=== PATIENT | male | born 1995 | race Two or more races ===

== ENCOUNTER 2023-02-08 14:54 | Emergency (ER) | payer OTHER ==
[~2023-02-08] VITALS: Ht 172.7 cm; Wt 91.7 kg
[2023-02-08] MEDS ORDERED: ETOMIDATE (2MG/ML) 20ML VIAL IV ONE (16:15)
[2023-02-08] MEDS ORDERED: PROPOFOL 100 ML IV ONE (17:12)
[2023-02-08] MEDS ORDERED: KETAMINE HCL 10 ML ONE (17:13)
[2023-02-08] MEDS ORDERED: IBUP800T26 PO (18:12)
[2023-02-08] MEDS ORDERED: PROPOFOL 10 MG/ML 20 ML IV ONE (19:00)
[2023-02-08 21:30] VITALS: BP 158/96
== END 2023-02-08 21:22 | disposition home or self-care (01) ==
LOC: ER 14:54
DX: S43.004A Unspecified dislocation of right shoulder joint, initial encounter (principal); I10 Essential (primary) hypertension; X58.XXXA Exposure to other specified factors, initial encounter; Y93.89 Activity, other specified; Y92.89 Other specified places as the place of occurrence of the external cause; Y99.8 Other external cause status
CPT/HCPCS: 23650; 73020; 99152; 99153; 99285; J2704

== ENCOUNTER 2023-02-19 11:48 | Emergency (ER) | payer OTHER ==
[~2023-02-19] VITALS: Ht 172.7 cm; Wt 89.0 kg
[~2023-02-19 11:48] MED LIST: IBUP800T26 PO
[2023-02-19] MEDS ORDERED: PROPOFOL 10 MG/ML 20 ML IV ONE (17:00)
[2023-02-19] MEDS ORDERED: SODIUM CHLORIDE 0.9% 1,000 ML IV ONE (17:00)
[2023-02-19 20:35] VITALS: BP 154/97
== END 2023-02-19 20:38 | disposition home or self-care (01) ==
LOC: ER 11:48
DX: M24.411 Recurrent dislocation, right shoulder (principal)
CPT/HCPCS: 23650; 73020; 73030; 96360; 99152; 99285; J2704; J7030

== ENCOUNTER 2023-04-17 05:33 | Emergency (ER) | payer OTHER ==
[~2023-04-17] VITALS: Ht 172.7 cm; Wt 100.0 kg
[~2023-04-17 05:33] MED LIST changes: +IBUP-1455 PO; -IBUP800T26 PO
[2023-04-17] MEDS ORDERED: ETOMIDATE (2MG/ML) 20ML VIAL IV ONE (06:45)
[2023-04-17 09:57] VITALS: BP 149/99
== END 2023-04-17 10:27 | disposition home or self-care (01) ==
LOC: ER 05:33
DX: M24.411 Recurrent dislocation, right shoulder (principal); I10 Essential (primary) hypertension; Z79.1 Long term (current) use of non-steroidal anti-inflammatories (NSAID)
CPT/HCPCS: 23650; 73030; 94760; 94762; 99152

== ENCOUNTER 2023-06-14 11:05 | Emergency (ER) | payer OTHER ==
[~2023-06-14] VITALS: Ht 172.7 cm; Wt 86.4 kg
[2023-06-14 11:37] VITALS: RESP 63; TEMP 97.9; O2SAT 98
[2023-06-14] MEDS ORDERED: ETOMIDATE (2MG/ML) 20ML VIAL IV ONE (11:45)
[2023-06-14 14:00] VITALS: BP 144/88; PULSE 58; RESP 13; O2SAT 100
== END 2023-06-14 14:06 | disposition home or self-care (01) ==
LOC: ER 11:05
DX: S43.014A Anterior dislocation of right humerus, initial encounter (principal); I10 Essential (primary) hypertension; K80.20 Calculus of gallbladder without cholecystitis without obstruction; F17.210 Nicotine dependence, cigarettes, uncomplicated; F15.90 Other stimulant use, unspecified, uncomplicated; Z90.89 Acquired absence of other organs; Z79.1 Long term (current) use of non-steroidal anti-inflammatories (NSAID); X58.XXXA Exposure to other specified factors, initial encounter; Y93.01 Activity, walking, marching and hiking; Y92.89 Other specified places as the place of occurrence of the external cause; Y99.8 Other external cause status
CPT/HCPCS: 23650; 73020; 73030; 99152

== ENCOUNTER 2023-06-28 00:06 | Emergency (ER) | payer OTHER ==
[~2023-06-28] VITALS: Ht 172.7 cm; Wt 85.1 kg
[2023-06-28 02:27] VITALS: TEMP 98.4
[2023-06-28] MEDS ORDERED: KETAMINE 50mg/ML 10ml Vial (500mg/10ml) IV ONE (02:30)
[2023-06-28] MEDS ORDERED: PROPOFOL 10 MG/ML 20 ML IV ONE ×2 (02:50→03:15)
[2023-06-28 03:00] VITALS: PULSE 95; RESP 15; O2SAT 96
[2023-06-28] MEDS ORDERED: PROPRANOLOL HCL 1 MG/ML VIAL IV ONE (03:00)
[2023-06-28 05:30] VITALS: BP 15/94; PULSE 95; RESP 15; O2SAT 100
== END 2023-06-28 06:01 | disposition home or self-care (01) ==
LOC: ER 00:06
DX: S43.004A Unspecified dislocation of right shoulder joint, initial encounter (principal); I10 Essential (primary) hypertension; F17.210 Nicotine dependence, cigarettes, uncomplicated; Z90.49 Acquired absence of other specified parts of digestive tract; Z79.1 Long term (current) use of non-steroidal anti-inflammatories (NSAID); X58.XXXA Exposure to other specified factors, initial encounter; Y93.89 Activity, other specified; Y92.89 Other specified places as the place of occurrence of the external cause; Y99.8 Other external cause status
CPT/HCPCS: 23650; 73020; 73030; 99152; 99285; J2704

== ENCOUNTER 2023-08-19 20:42 | Emergency (ER) | payer OTHER ==
[~2023-08-19] VITALS: Ht 172.7 cm; Wt 85.2 kg
[2023-08-19] MEDS ORDERED: ONDANSETRON HCL 4 MG/2 ML VIAL IV ONE (23:30)
[2023-08-19] MEDS ORDERED: fentaNYL CITRATE 100 MCG/2 ML VL IV ONE (23:30)
[2023-08-19] MEDS ORDERED: PROPOFOL 10 MG/ML 20 ML IV ONE (23:30)
[2023-08-19 23:41] VITALS: PULSE 88; RESP 16; O2SAT 96
[2023-08-20] MEDS ORDERED: ALBUTEROL MEDNEB 2.5 mg/3ml NEB ONE (01:58)
[2023-08-20] MEDS ORDERED: ALBUTEROL SULF 2.5 MG/0.5ML(0.5%) NEB SOLN NEB ONE (02:00)
[2023-08-20] MEDS ORDERED: DexAMETHasone SOD PHOS 10MG/1ML VIAL INJ IV ONE (02:00)
[2023-08-20 02:45] VITALS: BP 150/85; PULSE 84; RESP 15; O2SAT 94
== END 2023-08-20 03:00 | disposition home or self-care (01) ==
LOC: ER 20:46
DX: S43.004A Unspecified dislocation of right shoulder joint, initial encounter (principal); X58.XXXA Exposure to other specified factors, initial encounter; Y93.89 Activity, other specified; Y92.89 Other specified places as the place of occurrence of the external cause; Y99.8 Other external cause status
CPT/HCPCS: 23650; 73020; 73030; 94640; 96374; 96375; 99152; 99153; 99285; J1100; J2704; J3010

== ENCOUNTER 2023-11-12 19:38 | Emergency (ER) | payer OTHER ==
[~2023-11-12] VITALS: Ht 172.7 cm; Wt 90.0 kg
[2023-11-13 00:35] VITALS: PULSE 76; RESP 22; O2SAT 97
[2023-11-13 00:55] VITALS: TEMP 98.9
[2023-11-13] MEDS ORDERED: AMOX875T4 PO (00:55)
[2023-11-13] MEDS ORDERED: PROPOFOL 10 MG/ML 20 ML IV ONE ×2 (01:30)
[2023-11-13 04:54] VITALS: BP 145/88; PULSE 63; RESP 13; O2SAT 95
== END 2023-11-13 05:10 | disposition home or self-care (01) ==
LOC: ER 19:38
DX: S43.084A Other dislocation of right shoulder joint, initial encounter (principal); S81.832A Puncture wound without foreign body, left lower leg, initial encounter; I10 Essential (primary) hypertension; K80.20 Calculus of gallbladder without cholecystitis without obstruction; F17.210 Nicotine dependence, cigarettes, uncomplicated; F15.90 Other stimulant use, unspecified, uncomplicated; W01.0XXA Fall on same level from slipping, tripping and stumbling without subsequent striking against object, initial encounter; W54.0XXA Bitten by dog, initial encounter; Y93.01 Activity, walking, marching and hiking; Y92.89 Other specified places as the place of occurrence of the external cause; Y99.8 Other external cause status; Z98.890 Other specified postprocedural states; Z79.899 Other long term (current) drug therapy
CPT/HCPCS: 23650; 73020; 73030; 99152; 99285; J2704

== ENCOUNTER 2024-01-08 12:37 | Emergency (ER) | payer OTHER ==
[~2024-01-08] VITALS: Ht 172.7 cm; Wt 89.2 kg
[~2024-01-08 12:37] MED LIST changes: +AMOX875T4 PO
[2024-01-08 16:26] LABS: Amphetamine Screen, Urine Pos (NEGATIVE); Barbiturate Scree,Urine Neg (NEGATIVE); Benzodiazephine Screen, Urine Neg (NEGATIVE); Cannabinoid Screen, Urine Neg (NEGATIVE); Cocaine Screen, Urine Neg (NEGATIVE); Opiate Scree,Urine Neg (NEGATIVE); Phencyclidine Screen, Urine Neg (NEGATIVE)
[2024-01-08 16:40] LABS: Basophils # (auto) 0 10 ^3/uL (0-0.2); Basophils % (auto) 0.4 % (0.0-2.0); Eosinophils # (auto) 0.2 10 ^3/uL (0-0.8); Eosinophils % (auto) 2.3 % (0.0-7.0); Hematocrit 45.1 % (41.0-53.0); Hemoglobin 15.1 g/dL (13.5-17.5); Lymphocytes # (auto) 1.5 10 ^3/uL (0.4-5.4); Mean Corpuscular Hemoglobin 29.7 pg (28.0-32.0); Mean Corpuscular Hgb Conc. 33.5 g/dL (32.0-36.0); Mean Corpuscular Volume 88.5 fL (80.0-100.0); Monocytes # (auto) 0.5 10 ^3/uL (0-1.3); Monocytes % (auto) 5.7 % (0.0-12.0); Neutrophils # (auto) 7.3 10 ^3/uL (1.6-8.6); Neutrophils % (auto) 75.6 % (37.0-80.0); Red Cell Distribution Width 13.5 % (11.8-14.3); White Blood Cell 9.6 10^3/uL (4.4-10.8)
[2024-01-08 17:07] LABS: Alanine Aminotransferase 31 U/L (7-40); Albumin 4.6 g/dL (3.2-4.8); Alkaline Phosphatase 62 U/L (46-116); Anion Gap 8 (5-15); Aspartate Aminotransferase 25 U/L (13-40); BUN/Creatinine Ratio 14.4 (10.0-20.0); Blood Urea Nitrogen 14 mg/dL (9-23); Calcium 9.4 mg/dL (8.7-10.4); Carbon Dioxide 29 mmol/L (20-30); Chloride 101 mmol/L (98-107); Glucose 74 mg/dL (74-106); Potassium 3.8 mmol/L (3.5-5.1); Sodium 138 mmol/L (136-145)
[2024-01-08 17:08] LABS: Bilirubin, Total 0.6 mg/dL (0.2-1.0); Total Protein 7.2 g/dL (5.7-8.2)
[2024-01-08 21:05] VITALS: O2SAT 97
[2024-01-08] MEDS: SODIUM CHLORIDE 0.9% 500 ML IV ONE (21:15)
[2024-01-08] MEDS: LORazepam 2MG/ML-1ML VIAL IV ONE (21:19)
[2024-01-08] MEDS: fentaNYL CITRATE 100 MCG/2 ML VL IV ONE (21:20)
[2024-01-08 22:20] VITALS: BP 147/94; PULSE 72; RESP 16; O2SAT 96
== END 2024-01-08 22:44 | disposition home or self-care (01) ==
LOC: ER 12:37
DX: S43.004A Unspecified dislocation of right shoulder joint, initial encounter (principal); I10 Essential (primary) hypertension; F17.210 Nicotine dependence, cigarettes, uncomplicated; F12.10 Cannabis abuse, uncomplicated; Z79.899 Other long term (current) drug therapy; X58.XXXA Exposure to other specified factors, initial encounter; Y93.89 Activity, other specified; Y92.89 Other specified places as the place of occurrence of the external cause; Y99.8 Other external cause status
CPT/HCPCS: 23650; 36415; 73020; 73030; 80053; 80307; 85025; 96361; 96374; 96375; 99284; J2060; J3010; J7040

== ENCOUNTER 2024-01-28 20:32 | Emergency (ER) | payer OTHER ==
[~2024-01-28] VITALS: Ht 172.7 cm; Wt 86.0 kg
[2024-01-28 22:15] VITALS: PULSE 83; RESP 13; O2SAT 97
[2024-01-28] MEDS ORDERED: KETAMINE 50mg/ML 1ml syringe IV ONE (22:30)
[2024-01-28] MEDS: ONDANSETRON HCL 4 MG/2 ML VIAL IV ONE (22:57)
[2024-01-28] MEDS: MORPHINE SULFATE 4 MG/ML SYR/VIAL IV ONE (22:58)
[2024-01-28] MEDS: MIDAZOLAM HCL 2MG/2ML 2ml VIAL (1mg/ml) IV ONE (22:58)
[2024-01-28] MEDS ORDERED: KETAMINE 50mg/ML 10ml Vial (500mg/10ml) IV ONE (23:00)
[2024-01-28] MEDS: METOPROLOL TARTRATE 1MG/1ML-5ML VIAL IV ONE (23:12)
[2024-01-28] MEDS: KETAMINE 50mg/ML 10ml Vial (500mg/10ml) IV ONE (23:13)
[2024-01-28] MEDS ORDERED: TRAM50TA2 PO (23:14)
[2024-01-28 23:49] VITALS: TEMP 97.9
[2024-01-29 02:50] VITALS: BP 128/97; PULSE 80; RESP 15; O2SAT 96
== END 2024-01-29 02:58 | disposition home or self-care (01) ==
LOC: ER 20:32
DX: S43.004A Unspecified dislocation of right shoulder joint, initial encounter (principal); I10 Essential (primary) hypertension; F17.210 Nicotine dependence, cigarettes, uncomplicated; F12.10 Cannabis abuse, uncomplicated; X58.XXXA Exposure to other specified factors, initial encounter; Y93.89 Activity, other specified; Y92.89 Other specified places as the place of occurrence of the external cause; Y99.8 Other external cause status
CPT/HCPCS: 23650; 73020; 73030; 96374; 96375; 99152; 99285; J2250; J2270; J2405

== ENCOUNTER 2024-04-15 07:32 | Emergency (ER) | payer OTHER ==
[~2024-04-15] VITALS: Ht 172.7 cm; Wt 80.0 kg
[~2024-04-15 07:32] MED LIST changes: +TRAM50TA2 PO
[2024-04-15] MEDS: cloNIDine HCL 0.1 MG TAB PO ONE (07:59)
[2024-04-15 08:36] VITALS: TEMP 98.1
[2024-04-15 09:19] LABS: Basophils # (auto) 0 10 ^3/uL (0-0.2); Basophils % (auto) 0.5 % (0.0-2.0); Eosinophils # (auto) 0.1 10 ^3/uL (0-0.8); Eosinophils % (auto) 1.4 % (0.0-7.0); Hematocrit 45.9 % (41.0-53.0); Hemoglobin 15.7 g/dL (13.5-17.5); Lymphocytes % (auto) 26.3 % (10.0-50.0); Mean Corpuscular Hemoglobin 30.2 pg (28.0-32.0); Mean Corpuscular Hgb Conc. 34.2 g/dL (32.0-36.0); Mean Corpuscular Volume 88.2 fL (80.0-100.0); Monocytes # (auto) 0.6 10 ^3/uL (0-1.3); Monocytes % (auto) 7.5 % (0.0-12.0); Neutrophils # (auto) 4.9 10 ^3/uL (1.6-8.6); Neutrophils % (auto) 64.3 % (37.0-80.0); Nucleated Red Blood Cells % 0.1 %; Red Cell Distribution Width 13.5 % (11.8-14.3); White Blood Cell 7.6 10^3/uL (4.4-10.8)
[2024-04-15 09:31] LABS: Chloride 103 mmol/L (98-107); Potassium 3.4 mmol/L (3.5-5.1); Sodium 136 mmol/L (136-145)
[2024-04-15 09:32] LABS: Anion Gap 5 (5-15); Calcium 9.1 mg/dL (8.5-10.1); Carbon Dioxide 28 mmol/L (20-30)
[2024-04-15 09:37] LABS: BUN/Creatinine Ratio 13.4 (10.0-20.0); Blood Urea Nitrogen 13 mg/dL (9-23); Glucose 90 mg/dL (74-106)
[2024-04-15 09:44] VITALS: BP 145/89; PULSE 83; RESP 18; O2SAT 99
[2024-04-15] MEDS ORDERED: IBUP1TAB5 PO (09:45)
== END 2024-04-15 10:01 | disposition home or self-care (01) ==
LOC: ER 07:32
DX: S80.11XA Contusion of right lower leg, initial encounter (principal); I16.0 Hypertensive urgency; I10 Essential (primary) hypertension; W05.1XXA Fall from non-moving nonmotorized scooter, initial encounter; Y93.89 Activity, other specified; Y92.89 Other specified places as the place of occurrence of the external cause; Y99.8 Other external cause status
CPT/HCPCS: 36415; 80048; 85025

== ENCOUNTER 2024-06-19 08:35 | Emergency (ER) | payer OTHER ==
[~2024-06-19] VITALS: Ht 172.7 cm; Wt 101.0 kg
[~2024-06-19 08:35] MED LIST changes: +IBUP1TAB5 PO
[2024-06-19] MEDS: KETAMINE 50mg/ML 1ml syringe IV ONE (10:24)
[2024-06-19] MEDS: MORPHINE SULFATE 4 MG/ML SYR/VIAL IV ONE ×2 (10:27→11:45)
[2024-06-19] MEDS: MORPHINE SULFATE 4 MG/ML SYR/VIAL ONE (10:29)
[2024-06-19] MEDS: MIDAZOLAM HCL 2MG/2ML 2ml VIAL (1mg/ml) IV ONE ×2 (10:37→10:49)
[2024-06-19] MEDS: MIDAZOLAM HCL 2MG/2ML 2ml VIAL (1mg/ml) ONE ×2 (10:37→10:50)
[2024-06-19] MEDS ORDERED: IBUP-1455 PO (12:39)
[2024-06-19 15:00] VITALS: TEMP 97.3
[2024-06-19 15:30] VITALS: O2SAT 93
[2024-06-19 15:45] VITALS: BP 146/93; PULSE 80; RESP 15
== END 2024-06-19 15:57 | disposition home or self-care (01) ==
LOC: ER 08:35
DX: M24.411 Recurrent dislocation, right shoulder (principal); I10 Essential (primary) hypertension; F17.210 Nicotine dependence, cigarettes, uncomplicated; F15.90 Other stimulant use, unspecified, uncomplicated; Z98.890 Other specified postprocedural states; Z79.899 Other long term (current) drug therapy
CPT/HCPCS: 23650; 73020; 73030; 96374; 96375; 96376; 99285; J2250; J2270

== ENCOUNTER 2024-08-08 17:09 | Emergency (ER) | payer OTHER ==
[~2024-08-08] VITALS: Ht 182.9 cm; Wt 100.0 kg
[2024-08-08] MEDS: SODIUM CHLORIDE 0.9% 1,000 ML IV ONE (22:30)
[2024-08-08] MEDS: MORPHINE SULFATE 4 MG/ML SYR/VIAL IV ONE (22:30)
[2024-08-08] MEDS: PROPOFOL 10 MG/ML 20 ML IV ONE (23:01)
[2024-08-08] MEDS: ONDANSETRON HCL 4 MG/2 ML VIAL IV ONE (23:01)
[2024-08-09 02:20] VITALS: BP 124/92; PULSE 90; RESP 13; TEMP 98.3
[2024-08-09 02:45] VITALS: O2SAT 98
== END 2024-08-09 02:36 | disposition home or self-care (01) ==
LOC: ER 17:09
DX: S43.084A Other dislocation of right shoulder joint, initial encounter (principal); I10 Essential (primary) hypertension; F17.210 Nicotine dependence, cigarettes, uncomplicated; F15.90 Other stimulant use, unspecified, uncomplicated; Z90.49 Acquired absence of other specified parts of digestive tract; Z79.899 Other long term (current) drug therapy; X58.XXXA Exposure to other specified factors, initial encounter; Y93.89 Activity, other specified; Y92.89 Other specified places as the place of occurrence of the external cause; Y99.8 Other external cause status
CPT/HCPCS: 23650; 73020; 96361; 96374; 96375; 99152; 99153; 99285; J2270; J2405; J2704; J7030

== ENCOUNTER 2024-11-26 11:49 | Emergency (ER) | payer OTHER ==
[~2024-11-26] VITALS: Ht 172.7 cm; Wt 97.4 kg
--- NOTE | 2024-11-26 12:55 | DVH ---
EXAM: XY R SHOULDER 2+ VIEW XRAY HISTORY: right shoulder pain COMPARISON: XY R SHOULDER 1V XRAY on DOS: 08/08/24, XY R SHOULDER 1V XRAY on DOS: 08/08/24, XY R SHOU LDER 1V XRAY on DOS: 06/19/24, XY R SHOULDER 2+ VIEW XRAY on DOS: 06/19/24, XY R SHOULDER 1V XRAY on DO S: 01/28/24 TECHNIQUE: 2 views of the right shoulder were performed. FINDINGS: See below IMPRESSION: Anterior dislocation of the right glenohumeral joint . No displaced fractures are identified about t he right shoulder.
[2024-11-26 13:16] VITALS: TEMP 98
--- NOTE | 2024-11-26 13:37 | ED.PDOC ---
History of Present Illness HPI Comments 29-year-old male came to the ER because of right shoulder pain. Pain started this morning. He woke up with his shoulder deformed. He states that he has multiple dislocations in the past of the same shoulder. Denies trauma. Denies any other symptoms. Chief Complaint: Upper Extremity Time Seen by MD: 12:04 Primary Care Provider: NONE Reviewed Notes: Nurses Notes, Medications, Allergies Allergies: Coded Allergies: NO KNOWN ALLERGIES (Unverified , 02/08/23) Home Meds Active Scripts Ibuprofen Micronized (Ibuprofen) 800 Mg Tab, 800 MG PO Q8HP PRN, #30 TAB Prov:JOSEPH PORTILLO MD 06/19/24 Ibuprofen Micronized (Ibuprofen) 600 Mg Tab, 600 MG PO TIDP PRN for 10 Days, #30 TAB 0 Refills Prov:MIRELLA HAYES SUPERVISOR TRAVEL TRAILER 04/15/24 Tramadol Hcl (Tramadol Hcl) 50 Mg Tab, 50 MG PO QID PRN for 7 Days, #28 TAB Prov:NOAH GUERRERO MD 01/28/24 Amoxicillin & Pot Clavulanate (Amoxicillin/Potassium Cla) 875 Mg Tab, 1 TAB PO BID for 7 Days, #14 TAB Prov:KIEL SNYDER ORDERLY 11/13/23 Ibuprofen Micronized (Ibuprofen) 800 Mg Tab, 800 MG PO Q8HP PRN, #20 TAB Prov:JENNIFER PEÑA PAC 02/08/23 Information Source: Patient Mode of Arrival: Ambulatory Severity: Moderate Timing: Hours Duration: Since onset Past Medical History PAST MEDICAL HISTORY: Gallstones, HTN Surgical History: Appendectomy Family History Family History: Reviewed,noncontributory to illness, No family hx of Cancer, No family hx of DM, No family hx of Heart carroll, No family hx of HTN, No family hx ofKidney carroll, No family hx of Liver carroll, No family hx of Lung carroll, No family hx of Stroke Social History Smoker: Cigarettes Alcohol: Denies ETOH Use Drugs: Marijuana Lives In: Home Constitutional: denies: chills, diaphoresis, fatigue, fever, malaise, sweats, weakness, others EENTM: denies: blurred vision, double vision, ear bleeding, ear discharge, ear drainage, ear pain, ear ringing, eye pain, eye redness, hearing loss, mouth pain, mouth swelling, nasal discharge, nose bleeding, nose congestion, nose pain, photophobia, tearing, throat pain, throat swelling, voice changes, others Respiratory: denies: cough, hemoptysis, orthopnea, SOB at rest, shortness of breath, SOB with excertion, stridor, wheezing, others Cardiovascular: denies: chest pain, dizzy spells, diaphoresis, Dyspnea on exe rtion, edema, irregular heart beat, left arm pain, lightheadedness, palpitations, PND, syncope, others Gastrointestinal: denies: abdomen distended, abdominal pain, blood streaked bowels, constipated, diarrhea, dysphagia, difficulty swallowing, hematemesis, melena, nausea, poor appetite, poor fluid intake, rectal bleeding, rectal pain, vomiting, others Genitourinary: denies: burning, dysuria, flank pain, frequency, hematuria, incontinence, penile discharge, penile sore, pain, testicle pain, testicle swelling, urgency, others Neurological: denies: dizziness, fainting, headache, left sided numbness, left sided weakness, numbness, paresthesia, pre-existing deficit, right sided numbness, right sided weakness, seizure, speech problems, tingling, tremors, weakness, others Musculoskeletal: reports: joint pain (Right shoulder); denies: back pain, gout, joint swelling, muscle pain, muscle stiffness, neck pain, others Integumetry: denies: bruises, change in color, change in hair/nails, dryness, laceration, lesions, lumps, rash, wounds, others Allergic/Immunocompromised: denies: Difficulty Healing, Frequent Infections, Hi ves, Itching, others Hematologic/Lymphatic: denies: anemia, blood clots, easy bleeding, easy bruising, swollen glands, others Endocrine: denies: excessive hunger, excessive sweating, excessive thirst, excessive urination, flushing, intolerance to cold, intolerance to heat, unexplained weight gain, unexplained weight loss, others Psychiatric: denies: anxiety, bipolar disorder, depression, hopeless, panic disorder, schizophrenia, sleepless, suicidal, others Physical Exam General Appearance: Moderate Distress HEENT: Normal ENT Inspection, Pharynx Normal, TMs Normal Neck: Full Range of Motion, Non-Tender, Normal, Normal Inspection Respiratory: Chest Non-Tender, Lungs Clear, No Accessory Muscle Use, No Respiratory Distress, Normal Breath Sounds Cardiovascular: No Edema, No JVD, No Murmur, No Gallop, Normal Peripheral Pulses, Regular Rate/Rhythm Breast Exam: Deferred Gastrointestinal: No Organomegaly, Non Tender, No Pulsatile Mass, Normal Bowel Sounds, Soft Genitalia: Deferred Pelvic: Deferred Rectal: Deferred Extremities: Decreased range of motion (Right upper extremity) Musculoskeletal : Apperance: Normal Neurologic: Alert Cerebellar Function: Normal Reflexes: Normal Skin: Dry, Normal Color, Warm Peripheral Pulses: 3+ Radial (R), 3+ Radial (L) Lymphatic: No Adenopathy Was a procedure done? Was a procedure done?: Yes Sedation Sedation?: No Informed consent obtained: Yes Sedation start time: 17:00 Sedation end time: 17:05 Sedation total time: 5 minutes Arterial Puncture Informed consent obtained: Yes Risks/benefits/alt described: Yes Reduction Indication: Dislocation Sedation: Consents obtained, Sedation as ordered Intra-articular anesthetic bhaskar: No Post-reduction x-ray show: Reduction, Good Alignment Informed consent obtained: Yes Risks/benefits/alt described: Yes Differential Dx Considerations may include: Dislocation Sprain X-Ray, Labs, Meds, VS Vital Signs Date Time Temp Pulse Resp B/P (MAP) Pulse Ox O2 Delivery O2 Flow Rate FiO2 11/26/24 17:06 61 16 98 2.0 28 70 16 98 67 97 11/26/24 16:30 63 11/26/24 16:15 56 15 139/72 (94) 94 11/26/24 16:15 56 15 139/72 11/26/24 16:15 56 15 94 Room Air* 0 21 11/26/24 14:19 88 18 136/85 11/26/24 13:16 98.0 83 18 156/96 (116) 97 98.0 11/26/24 13:16 83 18 97 Room Air 11/26/24 12:37 98.0 83 18 156/96 (116) 97 Current Medications Medications (Trade) Dose Ordered Sig/Angelo Route Start Time Stop Time Status Last Admin Hydromorphone HCl (Dilaudid Injection) 2 mg ONCE ONCE IV 11/26/24 13:45 11/26/24 13:46 DC 11/26/24 14:19 Ondansetron HCl (Zofran) 4 mg ONCE ONCE IM 11/26/24 13:45 11/26/24 13:46 DC 11/26/24 14:14 Etomidate 20 mg ONCE ONCE IV 11/26/24 16:30 11/26/24 16:31 DC 11/26/24 16:50 Patient alert. Complaining of right shoulder pain. Vitals stable. Answering all questions. Was given Dilaudid. Was given Zofran. Try to reduce the shoulder. He would not allow me to reduce unless he is totally knocked out. Explained to the patient that we do not have any room to start the procedure. Insists on getting stronger sedation. Reviewed his previous visit. He does come here frequently for shoulder dislocation. Will be followed by another physician. Explained to the patient. At this time we did go ahead and do the procedure to the right shoulder The patient tolerated the procedure well Following the procedure, we did go ahead and do another x-ray which shows proper alignment Images Reviewed?: Images reviewed and evaluated by me Time of 1ST Reevaluation: 13:36 Reevaluation 1ST: Unchanged Patient Education/Counseling: Diagnosis, Treatment, Prognosis, Need For Follow Up Family Education/Counseling: No Family Present Departure 1 Departure Time of Disposition: 13:36 Impression: Primary Impression: Anterior dislocation of right shoulder Qualified Codes: S43.014A - Anterior dislocation of right humerus, initial encounter Disposition: 01 HOME / SELF CARE / HOMELESS Condition: Fair Discharged With: Self Critical Care Note Critical Care Time?: No Stability Stability form required: No Heart Score Heart Score: Heart Score Response (Comments) Value History N/A 0 EKG N/A 0 Age N/A 0 Risk Factors N/A 0 Troponin N/A 0 Total 0 SHADY PATEL MD Nov 26, 2024 13:37 SIMEON PAUL MD Nov 26, 2024 17:52
[2024-11-26] MEDS: ONDANSETRON HCL 4 MG/2 ML VIAL IM ONE (14:14)
[2024-11-26] MEDS: HYDROmorphone HCL 2 MG/ML VL/or syr IV ONE (14:19)
[2024-11-26 16:15] VITALS: PULSE 56; RESP 15; O2SAT 94
[2024-11-26] MEDS: ETOMIDATE (2MG/ML) 20ML VIAL IV ONE (16:50)
--- NOTE | 2024-11-26 17:18 | DVH ---
CLINICAL INDICATION: POST REDUCTION TECHNIQUE: XY R SHOULDER 1V XRAY Comparison: XY R SHOULDER 2+ VIEW XRAY on DOS: 11/26/24 FINDINGS/IMPRESSION: : Interval reduction of the right glenohumeral joint in anatomic alignment. Possible hill-Sachs fracture of the posterior lateral right humeral head. Overlying soft tissues are intact. Visualized portions of the right lung are clear. Cholecystectomy clips.
[2024-11-26 18:00] VITALS: BP 116/86; PULSE 78; RESP 13; O2SAT 95
== END 2024-11-26 18:24 | disposition home or self-care (01) ==
LOC: ER 12:03
DX: S43.014A Anterior dislocation of right humerus, initial encounter (principal); I10 Essential (primary) hypertension; Z90.49 Acquired absence of other specified parts of digestive tract; F17.210 Nicotine dependence, cigarettes, uncomplicated; X58.XXXA Exposure to other specified factors, initial encounter; Y93.89 Activity, other specified; Y92.89 Other specified places as the place of occurrence of the external cause; Y99.8 Other external cause status
CPT/HCPCS: 23650; 73020; 73030; 96372; 96374; 99285; J1171; J2405

== ENCOUNTER 2024-12-23 19:19 | Emergency (ER) | payer OTHER ==
[~2024-12-23] VITALS: Ht 172.7 cm; Wt 98.3 kg
--- NOTE | 2024-12-23 20:37 | DVH ---
EXAM: XY R SHOULDER 2+ VIEW XRAY CLINICAL HISTORY: SHOULDER PAIN COMPARISON: XY R SHOULDER 1V XRAY on DOS: 11/26/24, XY R SHOULDER 2+ VIEW XRAY on DOS: 11/26/24, XY R S HOULDER 1V XRAY on DOS: 08/08/24 TECHNIQUE: XY R SHOULDER 2+ VIEW XRAY Findings/Impression: 3 views of the right shoulder. Anterior inferior dislocation of the right shoulder. There is no evidence of an acute fracture, blastic, or lytic lesions. No radiopaque foreign bodies. No joint effusion or superficial soft tissue abnormalities.
[2024-12-24] MEDS: PROPOFOL 10 MG/ML 20 ML IV ONE (01:05)
[2024-12-24 01:06] VITALS: BP 141/92; TEMP 98
[2024-12-24 01:30] VITALS: PULSE 77; RESP 18; O2SAT 98
--- NOTE | 2024-12-24 01:34 | ED.PDOC ---
Musculoskeletal HPI Comments Patient complaining of right shoulder dislocation. Patient reports crit current history of shoulder dislocation. States last time and popped out was two weeks ago. Had to have it put back in place. Patient states he was seen sports specialist in the past, he was unable to was performed surgery as he does not want to miss out on work. Chief Complaint: Upper Extremity Time Seen by MD: 19:53 Primary Care Provider: NONE Reviewed Notes: Nurses Notes Allergies: Coded Allergies: NO KNOWN ALLERGIES (Unverified , 02/08/23) Home Meds Active Scripts Ibuprofen Micronized (Ibuprofen) 800 Mg Tab, 800 MG PO Q8HP PRN, #30 TAB Prov:JOSEPH PORTILLO MD 06/19/24 Ibuprofen Micronized (Ibuprofen) 600 Mg Tab, 600 MG PO TIDP PRN for 10 Days, #30 TAB 0 Refills Prov:MIRELLA HAYES DOG HANDLER OR TRAINER 04/15/24 Tramadol Hcl (Tramadol Hcl) 50 Mg Tab, 50 MG PO QID PRN for 7 Days, #28 TAB Prov:NOAH GUERRERO MD 01/28/24 Amoxicillin & Pot Clavulanate (Amoxicillin/Potassium Cla) 875 Mg Tab, 1 TAB PO BID for 7 Days, #14 TAB Prov:KIEL SNYDER DEV OPS ENGINEER 11/13/23 Ibuprofen Micronized (Ibuprofen) 800 Mg Tab, 800 MG PO Q8HP PRN, #20 TAB Prov:JENNIFER PEÑA PAC 02/08/23 Information Source: Patient Mode of Arrival: Ambulatory Location: Right Extremity Location: Shoulder Past Medical History PAST MEDICAL HISTORY: Gallstones, HTN Surgical History: Appendectomy Family History Family History: Reviewed,noncontributory to illness, No family hx of Cancer, No family hx of DM, No family hx of Heart carroll, No family hx of HTN, No family hx ofKidney carroll, No family hx of Liver carroll, No family hx of Lung carroll, No family hx of Stroke Social History Smoker: Cigarettes Alcohol: Denies ETOH Use Drugs: Marijuana Lives In: Home Physical Exam General Appearance: No Apparent Distress, Normal HEENT: Normal ENT Inspection, Pharynx Normal, TMs Normal Neck: Full Range of Motion, Non-Tender, Normal, Normal Inspection Respiratory: Chest Non-Tender, Lungs Clear, No Accessory Muscle Use, No Respiratory Distress, Normal Breath Sounds Cardiovascular: No Edema, No JVD, No Murmur, No Gallop, Normal Peripheral Pulses, Regular Rate/Rhythm Breast Exam: Deferred Gastrointestinal: No Organomegaly, Non Tender, No Pulsatile Mass, Normal Bowel Sounds, Soft Genitalia: Deferred Pelvic: Deferred Rectal: Deferred Extremities: No calf tenderness, Normal capillary refill, Normal inspection, Normal range of motion, Non-tender, No pedal edema Musculoskeletal : Location: Right Extremity Location: Shoulder (Tender to palpation over the shoulder, limited range of motion due to pain.) Apperance: Normal Neurologic: Alert, veneer manufacturer II-XII nml as Tested, No Motor Deficits, Normal Affect, Normal Mood, No Sensory Deficits Cerebellar Function: Normal Reflexes: Normal Skin: Dry, Normal Color, Warm Lymphatic: No Adenopathy Was a procedure done? Was a procedure done?: Yes Sedation Sedation?: Yes Informed consent obtained: Yes Sedation start time: 01:14 Sedation end time: 01:19 Sedation total time: 5min Sedation provider statement: Procedure explained consent obtained. Patient given 130 mg propofol with good sedative effect Successful reduction of the right shoulder performed. Placement confirmed via postprocedural shoulder x-ray Patient placed in shoulder immobilizer Differential Diagnosis EXT Differential Diagnosis: Compartment Syndrome, Fracture, Sprain, Dislocation X-Ray, Labs, Meds, VS Vital Signs Date Time Temp Pulse Resp B/P (MAP) Pulse Ox O2 Delivery O2 Flow Rate FiO2 12/24/24 01:06 98.0 66 11 141/92 (108) 97 98.0 12/23/24 19:35 97.8 102 20 159/103 (121) 96 Current Medications Medications (Trade) Dose Ordered Sig/Angelo Route Start Time Stop Time Status Last Admin Propofol (Diprivan) 200 mg ONCE ONCE IV 12/24/24 01:00 12/24/24 01:01 DC 12/24/24 01:05 X-Ray, Labs, Meds, VS Comment Imaging: X-rays and CT scans were reviewed and interpreted by this provider, imaging shows no fractures and no pathological disease. Postreduction film shows good alignment of the right shoulder Laboratory: Labs reviewed and interpreted by this provider. No significant abnormalities noted. Patient has prior medical visits reviewed. Med reconciliation performed Vital signs reviewed Time of 1ST Reevaluation: 01:33 Reevaluation 1ST: Improved Patient Education/Counseling: Diagnosis, Treatment, Need For Follow Up (Patient advised to follow-up in the emergency room in the next 24 to 48 hours if symptoms do not improve. Advised follow-up with PCP in the next 3 to 5 days. Patient verbalized understanding. ) Family Education/Counseling: Diagnosis, Treatment Departure 1 Departure Time of Disposition: 01:32 Impression: Primary Impression: Anterior dislocation of right shoulder Qualified Codes: S43.014A - Anterior dislocation of right humerus, initial encounter Disposition: HOME / SELF CARE / HOMELESS Condition: Fair Discharged With: Self Critical Care Note Critical Care Time?: No Stability Stability form required: No Heart Score Heart Score: Heart Score Response (Comments) Value History N/A 0 EKG N/A 0 Age N/A 0 Risk Factors N/A 0 Troponin N/A 0 Total 0 KIEL SNYDER Dec 24, 2024 01:34
--- NOTE | 2024-12-24 01:45 | DVH ---
CLINICAL INDICATION: Post Reduction R Shoulder TECHNIQUE: Single view of the right shoulder. Comparison: XY R SHOULDER 2+ VIEW XRAY on DOS: 12/23/24, XY R SHOULDER 1V XRAY on DOS: 11/26/24, XY R S HOULDER 2+ VIEW XRAY on DOS: 11/26/24, XY R SHOULDER 1V XRAY on DOS: 08/08/24, XY R SHOULDER 1V XRAY o n DOS: 08/08/24 FINDINGS/IMPRESSION: Successful reduction. Alignment is now grossly anatomic. No acute fracture identified. Soft tissues are unremarkable.
== END 2024-12-24 03:24 | disposition home or self-care (01) ==
LOC: ER 19:19
DX: S43.014A Anterior dislocation of right humerus, initial encounter (principal); I10 Essential (primary) hypertension; F17.210 Nicotine dependence, cigarettes, uncomplicated; Z90.49 Acquired absence of other specified parts of digestive tract; X58.XXXA Exposure to other specified factors, initial encounter; Y93.89 Activity, other specified; Y92.89 Other specified places as the place of occurrence of the external cause; Y99.8 Other external cause status
CPT/HCPCS: 23650; 73020; 73030; 99285; J2704

== ENCOUNTER 2025-01-19 23:24 | Emergency (ER) | payer OTHER ==
[2025-01-20] MEDS ORDERED: BACDST PO (03:57)
== END 2025-01-20 00:24 | disposition left against medical advice (07) ==
LOC: ER 23:24
DX: R68.89 Other general symptoms and signs (principal); Z53.21 Procedure and treatment not carried out due to patient leaving prior to being seen by health care provider

== ENCOUNTER 2025-01-20 01:15 | Emergency (ER) | payer OTHER ==
[~2025-01-20] VITALS: Ht 172.7 cm; Wt 96.3 kg
--- NOTE | 2025-01-20 02:28 | ED.PDOC ---
Musculoskeletal HPI Comments 29 y/o obese M, with history of HTN and polysubstance abuse, presents with c/o bilateral, lower-leg swelling, that is worse on the right-side with associated redness, today. Patient is a poor historian and endorses on symptoms progressively worsening following unspecified onset. He comments on having an isolated subjective febrile sensation at work prior to ED arrival in addition to recent methamphetamine use 2-3 days ago. He refutes any additional relevant or pertinent informations, such as history of tobacco cigarette use or recent travel. Patient denies any numbness, tingling, weakness, chills, shortness of breath, chest pain, or other associated symptoms or modifiers at this time. Chief Complaint: Lower Extremity Time Seen by MD: 02:00 Primary Care Provider: Dr. Levy Reviewed Notes: Nurses Notes, Medications, Allergies Allergies: Coded Allergies: NO KNOWN ALLERGIES (Unverified , 02/08/23) Home Meds Active Scripts Ibuprofen Micronized (Ibuprofen) 800 Mg Tab, 800 MG PO Q8HP PRN, #30 TAB Prov:JOSEPH PORTILLO MD 06/19/24 Ibuprofen Micronized (Ibuprofen) 600 Mg Tab, 600 MG PO TIDP PRN for 10 Days, #30 TAB 0 Refills Prov:MIRELLA HAYES DISTRIBUTION WAREHOUSE MANAGER 04/15/24 Tramadol Hcl (Tramadol Hcl) 50 Mg Tab, 50 MG PO QID PRN for 7 Days, #28 TAB Prov:NOAH GUERRERO MD 01/28/24 Amoxicillin & Pot Clavulanate (Amoxicillin/Potassium Cla) 875 Mg Tab, 1 TAB PO BID for 7 Days, #14 TAB Prov:KIEL SNYDERP 11/13/23 Ibuprofen Micronized (Ibuprofen) 800 Mg Tab, 800 MG PO Q8HP PRN, #20 TAB Prov:JENNIFER PEÑA PAC 02/08/23 Information Source: Patient Mode of Arrival: Ambulatory Timing: Hours Prehospital treatment: None Past Medical History PAST MEDICAL HISTORY: Gallstones, HTN Surgical History: Appendectomy Family History Family History: Reviewed,noncontributory to illness, No family hx of Cancer, No family hx of DM, No family hx of Heart carroll, No family hx of HTN, No family hx ofKidney carroll, No family hx of Liver carroll, No family hx of Lung carroll, No family hx of Stroke Social History Smoker: Cigarettes Alcohol: Denies ETOH Use Drugs: Marijuana, Methamphetamine Lives In: Home All Other Systems: Reviewed and Negative (Comprehensive systems review obtained and negative except for what is stated in the HPI.) Physical Exam General Appearance: No Apparent Distress, Obese HEENT: Normal ENT Inspection, Pharynx Normal, TMs Normal Neck: Full Range of Motion, Non-Tender, Normal, Normal Inspection Respiratory: Chest Non-Tender, Lungs Clear, No Accessory Muscle Use, No Respiratory Distress, Normal Breath Sounds Cardiovascular: No Edema, No JVD, No Murmur, No Gallop, Normal Peripheral Pulses, Regular Rate/Rhythm Breast Exam: Deferred Gastrointestinal: No Organomegaly, Non Tender, No Pulsatile Mass, Normal Bowel Sounds, Soft Genitalia: Deferred Pelvic: Deferred Rectal: Deferred Extremities: Leg edema (bilateral lower extremity swelling), No calf tend erness, Normal capillary refill, Normal range of motion, No pedal edema, Swelling (bilateral lower extremity swelling), Other (erythema to right lower extremity ) Musculoskeletal : Apperance: Normal Neurologic: Alert, band cutting machine operator II-XII nml as Tested, No Motor Deficits, Normal Affect, Normal Mood, No Sensory Deficits Cerebellar Function: Normal Reflexes: Normal Skin: Dry, Normal Color, Warm Lymphatic: No Adenopathy Was a procedure done? Was a procedure done?: No Differential Diagnosis EXT Differential Diagnosis: Cellulitis, Deep Vein Thrombosis, Other (dermatitis) X-Ray, Labs, Meds, VS Vital Signs Date Time Temp Pulse Resp B/P (MAP) Pulse Ox O2 Delivery O2 Flow Rate FiO2 01/20/25 03:36 98.5 80 16 156/108 (124) 98 98.5 01/20/25 01:25 98.0 80 16 165/117 (133) 98 98.0 Lab Test 01/20/25 02:17 Range/Units White Blood Count 5.3 4.4-10.8 10^3/uL Red Blood Count 5.55 4.5-5.90 10^6/uL Hemoglobin 16.2 13.5-17.5 g/dL Hematocrit 48.7 41.0-53.0 % Mean Corpuscular Volume 87.8 80.0-100.0 fL Mean Corpuscular Hemoglobin 29.1 28.0-32.0 pg Mean Corpuscular Hemoglobin Concent 33.2 32.0-36.0 g/dL Red Cell Distribution Width 14.1 11.8-14.3 % Platelet Count 256 140-450 10^3/uL Mean Platelet Volume 8.0 6.9-10.8 fL Neutrophils (%) (Auto) 59.3 37.0-80.0 % Lymphocytes (%) (Auto) 31.0 10.0-50.0 % Monocytes (%) (Auto) 7.1 0.0-12.0 % Eosinophils (%) (Auto) 2.0 0.0-7.0 % Basophils (%) (Auto) 0.6 0.0-2.0 % Neutrophils # (Auto) 3.2 1.6-8.6 10 ^3/uL Lymphocytes # (Auto) 1.6 0.4-5.4 10 ^3/uL Monocytes # (Auto) 0.4 0-1.3 10 ^3/uL Eosinophils # (Auto) 0.1 0-0.8 10 ^3/uL Basophils # (Auto) 0 0-0.2 10 ^3/uL Nucleated Red Blood Cells 0.1 % Sodium Level 143 136-145 mmol/L Potassium Level 3.9 3.5-5.1 mmol/L Chloride Level 108 H 98-107 mmol/L Carbon Dioxide Level 29 20-31 mmol/L Anion Gap 6 5-15 Blood Urea Nitrogen 17 9-23 mg/dL Creatinine 1.01 0.700-1.30 mg/dL Glomerular Filtration Rate Calc 103 >90 mL/min BUN/Creatinine Ratio 16.8 10.0-20.0 Serum Glucose 75 74-106 mg/dL Calcium Level 9.7 8.7-10.4 mg/dL Troponin I High Sensitivity < 3 L </=54 ng/L B-Type Natriuretic Peptide 2.88 0-100 pg/mL Time of 1ST Reevaluation: 02:30 Reevaluation 1ST: Unchanged Patient Education/Counseling: Diagnosis, Treatment Family Education/Counseling: No Family Present Additional Information Previous visit documents reviewed: December 23, 2024 encounter for anterior dislocation of right shoulder The following tests were ordered, and results were reviewed by me: CXR, troponin, CBC, BNP, BMP Additional Information was gathered from interviewing the following independent historians: n/a I reviewed and agreed with the following test results read by other providers: CXR I discussed treatment and results with medical personnel and: Patient Departure 1 Departure Time of Disposition: 03:56 (Patient has cellulitis of his right lower extremity. We will discharge patient home with outpatient follow up) Impression: Primary Impression: Cellulitis Qualified Codes: L03.115 - Cellulitis of right lower limb Disposition: HOME / SELF CARE / HOMELESS Condition: Stable Additional Instructions: You have cellulitis. This is a skin infection. You were prescribed antibiotics. Please take as directed. You can take tylenol and motrin as needed for pain. It is important that you follow up with your regular doctor within one week to ensure you are doing well. If your symptoms worsen or you have any other concerns then please return to the ER. e-Prescriptions Sulfamethoxazole W/Trimethopri (Bactrim Ds Tablet) 1 Tab Tb 1 TAB PO BID for 7 Days, #14 TAB Prov: GEORGIA FALK MD 01/20/25 Discharged With: Self Critical Care Note Critical Care Time?: No Stability Stability form required: No Heart Score Heart Score: Heart Score Response (Comments) Value History N/A 0 EKG N/A 0 Age N/A 0 Risk Factors N/A 0 Troponin N/A 0 Total 0 I personally scribed for GEORGIA FALK MD ([email or web address]) on 01/20/25 at 02:28. Electronically submitted by Nestor Abebe ([email or web address]). GEORGIA FALK MD Jan 20, 2025 02:28
[2025-01-20 02:34] LABS: Basophils # (auto) 0 10 ^3/uL (0-0.2); Basophils % (auto) 0.6 % (0.0-2.0); Eosinophils # (auto) 0.1 10 ^3/uL (0-0.8); Hematocrit 48.7 % (41.0-53.0); Hemoglobin 16.2 g/dL (13.5-17.5); Lymphocytes # (auto) 1.6 10 ^3/uL (0.4-5.4); Mean Corpuscular Hemoglobin 29.1 pg (28.0-32.0); Mean Corpuscular Hgb Conc. 33.2 g/dL (32.0-36.0); Mean Corpuscular Volume 87.8 fL (80.0-100.0); Monocytes # (auto) 0.4 10 ^3/uL (0-1.3); Monocytes % (auto) 7.1 % (0.0-12.0); Neutrophils # (auto) 3.2 10 ^3/uL (1.6-8.6); Neutrophils % (auto) 59.3 % (37.0-80.0); Nucleated Red Blood Cells % 0.1 %; Platelet Count (auto) 256 10^3/uL (140-450); Red Blood Cells 5.55 10^6/uL (4.5-5.90); Red Cell Distribution Width 14.1 % (11.8-14.3); White Blood Cell 5.3 10^3/uL (4.4-10.8)
[2025-01-20 02:42] LABS: Potassium 3.9 mmol/L (3.5-5.1); Sodium 143 mmol/L (136-145)
[2025-01-20 02:43] LABS: Anion Gap 6 (5-15); Carbon Dioxide 29 mmol/L (20-31)
[2025-01-20 02:44] LABS: Calcium 9.7 mg/dL (8.7-10.4)
[2025-01-20 02:48] LABS: Glucose 75 mg/dL (74-106)
[2025-01-20 02:49] LABS: BUN/Creatinine Ratio 16.8 (10.0-20.0); Blood Urea Nitrogen 17 mg/dL (9-23)
[2025-01-20 02:52] LABS: Chloride 108 mmol/L (98-107)
[2025-01-20 03:36] VITALS: BP 156/108; TEMP 98.5
--- NOTE | 2025-01-20 03:50 | DVH ---
CHEST RADIOGRAPH Indication: lower leg swelling Technique: Single frontal view of the chest was obtained Comparison: None IMPRESSION: Heart appears normal in size. The lungs appear clear without focal airspace opacity, effusion, or pn eumothorax. Elevated right hemidiaphragm.
[2025-01-20] MEDS ORDERED: BACDST PO (03:57)
[2025-01-20 04:08] VITALS: PULSE 80; RESP 16; O2SAT 98
== END 2025-01-20 04:13 | disposition home or self-care (01) ==
LOC: ER 01:15
DX: L03.90 Cellulitis, unspecified (principal); I10 Essential (primary) hypertension; F17.210 Nicotine dependence, cigarettes, uncomplicated; F12.90 Cannabis use, unspecified, uncomplicated; Z90.49 Acquired absence of other specified parts of digestive tract; Z79.899 Other long term (current) drug therapy
CPT/HCPCS: 36415; 71045; 80048; 83880; 84484; 85025

== ENCOUNTER 2025-02-22 12:37 | Emergency (ER) | payer OTHER ==
[~2025-02-22] VITALS: Ht 172.7 cm; Wt 94.6 kg
[~2025-02-22 12:37] MED LIST changes: +BACDST PO
--- NOTE | 2025-02-22 13:26 | ED.PDOC ---
Musculoskeletal HPI Comments 30 y.o male presents to the ED for an evaluation of right shoulder dislocation. Patient reports moving arm when it popped, states history of previous dislocations to that shoulder and has had it placed back in. Patient denies any swelling, numbness, fall, injuries Chief Complaint: Upper Extremity Time Seen by MD: 13:20 Primary Care Provider: Dr. Levy Reviewed Notes: Nurses Notes, Medications, Allergies Allergies: Coded Allergies: NO KNOWN ALLERGIES (Unverified , 02/08/23) Home Meds Active Scripts Sulfamethoxazole W/Trimethopri (Bactrim Ds Tablet) 1 Tab Tb, 1 TAB PO BID for 7 Days, #14 TAB Prov:GEORGIA FALK MD 01/20/25 Ibuprofen Micronized (Ibuprofen) 800 Mg Tab, 800 MG PO Q8HP PRN, #30 TAB Prov:JOSEPH PORTILLO MD 06/19/24 Ibuprofen Micronized (Ibuprofen) 600 Mg Tab, 600 MG PO TIDP PRN for 10 Days, #30 TAB 0 Refills Prov:MIRELLA HAYES SENIOR SOFTWARE SYSTEMS ENGINEER 04/15/24 Tramadol Hcl (Tramadol Hcl) 50 Mg Tab, 50 MG PO QID PRN for 7 Days, #28 TAB Prov:NOAH GUERRERO MD 01/28/24 Amoxicillin & Pot Clavulanate (Amoxicillin/Potassium Cla) 875 Mg Tab, 1 TAB PO BID for 7 Days, #14 TAB Prov:KIEL SNYDER EPOXY COATINGS INSTALLER 11/13/23 Ibuprofen Micronized (Ibuprofen) 800 Mg Tab, 800 MG PO Q8HP PRN, #20 TAB Prov:JENNIFER PEÑA PAC 02/08/23 Information Source: Patient Mode of Arrival: Ambulatory Location: Right Extremity Location: Shoulder Timing: Hours Severity: Moderate Able to Move Extremity: No Bear Weight: Limited Pain: Moderate Mechanism: None Circumstances: Spontaneous Onset of Symptoms: Spontaneous Symptoms: Pain DVT Risk Factors: NONE History of: Shoulder Dislocation Associated signs and symptoms: Shoulder pain Past Medical History PAST MEDICAL HISTORY: Gallstones, HTN Surgical History: Appendectomy Family History Family History: Reviewed,noncontributory to illness, No family hx of Cancer, No family hx of DM, No family hx of Heart carroll, No family hx of HTN, No family hx ofKidney carroll, No family hx of Liver carroll, No family hx of Lung carroll, No family hx of Stroke Social History Smoker: Cigarettes Alcohol: Denies ETOH Use Drugs: Marijuana, Methamphetamine Lives In: Home Constitutional: denies: chills, diaphoresis, fatigue, fever, malaise, sweats, weakness, others EENTM: denies: blurred vision, double vision, ear bleeding, ear discharge, ear drainage, ear pain, ear ringing, eye pain, eye redness, hearing loss, mouth pain, mouth swelling, nasal discharge, nose bleeding, nose congestion, nose pain, photophobia, tearing, throat pain, throat swelling, voice changes, others Respiratory: denies: cough, hemoptysis, orthopnea, SOB at rest, shortness of breath, SOB with excertion, stridor, wheezing, others Cardiovascular: denies: chest pain, dizzy spells, diaphoresis, Dyspnea on exertion, edema, irregular heart beat, left arm pain, lightheadedness, palpitations, PND, syncope, others Gastrointestinal: denies: abdomen distended, abdominal pain, blood streaked bowels, constipated, diarrhea, dysphagia, difficulty swallowing, hematemesis, melena, nausea, poor appetite, poor fluid intake, rectal bleeding, rectal pain, vomiting, others Genitourinary: denies: burning, dysuria, flank pain, frequency, hematuria, incontinence, penile discharge, penile sore, pain, testicle pain, testicle swelling, urgency, others Neurological: denies: dizziness, fainting, headache, left sided numbness, left sided weakness, numbness, paresthesia, pre-existing deficit, right sided numbness, right sided weakness, seizure, speech problems, tingling, tremors, weakness, others Musculoskeletal: reports: others (right shoulder pain ); denies: back pain, gout, joint pain, joint swelling, muscle pain, muscle stiffness, neck pain Integumetry: denies: bruises, change in color, change in hair/nails, dryness, laceration, lesions, lumps, rash, wounds, others Allergic/Immunocompromised: denies: Difficulty Healing, Frequent Infections, Hives, Itching, others Hematologic/Lymphatic: denies: anemia, blood clots, easy bleeding, easy bruising, swollen glands, others Endocrine: denies: excessive hunger, excessive sweating, excessive thirst, excessive urination, flushing, intolerance to cold, intolerance to heat, unexplained weight gain, unexplained weight loss, others Psychiatric: denies: anxiety, bipolar disorder, depression, hopeless, panic disorder, schizophrenia, sleepless, suicidal, others All Other Systems: Reviewed and Negative Physical Exam General Appearance: Moderate Distress HEENT: Normal ENT Inspection, Pharynx Normal, TMs Normal Neck: Full Range of Motion, Non-Tender, Normal, Normal Inspection Respiratory: Chest Non-Tender, Lungs Clear, No Accessory Muscle Use, No Respiratory Distress, Normal Breath Sounds Cardiovascular: No Edema, No JVD, No Murmur, No Gallop, Normal Peripheral Pulses, Regular Rate/Rhythm Breast Exam: Deferred Gastrointestinal: No Organomegaly, Non Tender, No Pulsatile Mass, Normal Bowel Sounds, Soft Genitalia: Deferred Pelvic: Deferred Rectal: Deferred Extremities: No calf tenderness, Normal capillary refill, No pedal edema Musculoskeletal : Location: Right Extremity Location: Shoulder Apperance: Deformity, Limited ROM, Tenderness: Moderate Neurologic: Alert, circular clerk II-XII nml as Tested, No Motor Deficits, Normal Affect, Normal Mood, No Sensory Deficits Cerebellar Function: Normal Reflexes: Normal Skin: Dry, Normal Color, Warm Lymphatic: No Adenopathy Was a procedure done? Was a procedure done?: Yes Sedation Sedation?: Yes Informed consent obtained: Yes Sedation start time: 15:00 Sedation end time: 15:10 Sedation total time: 10 Reduction Indication: Dislocation Sedation: Consents obtained, Sedation as ordered Intra-articular anesthetic bhaskar: Yes Post-reduction x-ray show: Reduction, Good Alignment Informed consent obtained: Yes Risks/benefits/alt described: Yes Differential Diagnosis EXT Differential Diagnosis: Sprain, Dislocation, Strain X-Ray, Labs, Meds, VS Vital Signs Date Time Temp Pulse Resp B/P (MAP) Pulse Ox O2 Delivery O2 Flow Rate FiO2 02/22/25 15:12 74 23 98 2.0 28 76 26 97 90 97 02/22/25 14:00 97.8 77 17 157/99 (118) 97 97.8 02/22/25 14:00 Room Air* 0 21 02/22/25 13:20 98.4 87 17 125/87 (100) 97 98.4 Current Medications Medications (Trade) Dose Ordered Sig/Angelo Route Start Time Stop Time Status Last Admin Etomidate 20 mg ONCE ONCE IV 02/22/25 13:30 02/22/25 13:31 DC 02/22/25 14:56 The patient's x-ray of the right shoulder shows dislocation of the right shoulder anteriorly. The patient was given etomidate 20 mg IV push for the procedure The patient tolerated the procedure well The repeat x-ray shows normal reduction The patient was placed in a right shoulder immobilizer and the patient was being discharged The patient was follow up with the primary care doctor The patient will return to the emergency department's condition worsens Images Reviewed?: Images reviewed and evaluated by me Time of 1ST Reevaluation: 13:22 Reevaluation 1ST: Unchanged Patient Education/Counseling: Diagnosis, Treatment, Prognosis, Need For Follow Up Family Education/Counseling: No Family Present Departure 1 Departure Time of Disposition: 15:39 Impression: Primary Impression: Anterior dislocation of right shoulder Qualified Codes: S43.014A - Anterior dislocation of right humerus, initial encounter Disposition: HOME / SELF CARE / HOMELESS Condition: Fair Discharged With: Self Critical Care Note Critical Care Time?: No Stability Stability form required: No I personally scribed for SIMEON PAUL MD ([email or web address]) on 02/22/25 at 13:26. Electronically submitted by Danuta Bhatia ([facility] [employer] I personally scribed for SIMEON PAUL MD ([email or web address]) on 02/22/25 at 15:17. Electronically submitted by Danuta Bhatia ([facility]). SIMEON PAUL MD Feb 22, 2025 13:26
[2025-02-22 14:00] VITALS: TEMP 97.8
[2025-02-22] MEDS: ETOMIDATE (2MG/ML) 20ML VIAL IV ONE (14:56)
--- NOTE | 2025-02-22 15:20 | DVH ---
EXAM: XY R SHOULDER 2+ VIEW XRAY CLINICAL HISTORY: trauma COMPARISON: XY R SHOULDER 1V XRAY on DOS: 12/24/24, XY R SHOULDER 2+ VIEW XRAY on DOS: 12/23/24, XY R S HOULDER 1V XRAY on DOS: 11/26/24 TECHNIQUE: XY R SHOULDER 2+ VIEW XRAY Findings/Impression: 3 views of the right shoulder. Anterior inferior dislocation of the right shoulder. There is no evidence of an acute fracture, blastic, or lytic lesions. No radiopaque foreign bodies. No superficial soft tissue abnormalities.
--- NOTE | 2025-02-22 15:23 | DVH ---
CLINICAL INDICATION: Post reduction TECHNIQUE: 1 radiographic views of the right shoulder were obtained. Comparison: XY R SHOULDER 2+ VIEW XRAY on DOS: 02/22/25, XY R SHOULDER 1V XRAY on DOS: 12/24/24, XY R S HOULDER 2+ VIEW XRAY on DOS: 12/23/24 FINDINGS/IMPRESSION: There is no evidence of acute fracture or dislocation. The visualized joint space is well maintained. The alignment is anatomical. There is no radiopaque foreign body. HS:Y
[2025-02-22 16:00] VITALS: BP 133/82; PULSE 71; RESP 13; O2SAT 95
== END 2025-02-22 16:38 | disposition home or self-care (01) ==
LOC: ER 12:37
DX: S43.014A Anterior dislocation of right humerus, initial encounter (principal); I10 Essential (primary) hypertension; F17.210 Nicotine dependence, cigarettes, uncomplicated; Z90.49 Acquired absence of other specified parts of digestive tract; X58.XXXA Exposure to other specified factors, initial encounter; Y93.89 Activity, other specified; Y92.89 Other specified places as the place of occurrence of the external cause; Y99.8 Other external cause status
CPT/HCPCS: 23650; 73020; 73030; 99152

== ENCOUNTER 2025-08-12 19:08 | Inpatient (IN) | payer OTHER ==
[~2025-08-12] VITALS: Ht 172.7 cm; Wt 95.8 kg
--- NOTE | 2025-08-12 19:48 | DVH ---
CLINICAL INDICATION: right ankle pain TECHNIQUE: 3 radiographic views of the right ankle were obtained. Comparison: None FINDINGS/IMPRESSION: Distal tibia and fibula are intact normal alignment. No fractures or dislocations. There are no radiopaque foreign bodies. Soft tissue swelling over the medial malleolus.
--- NOTE | 2025-08-12 20:19 | ED.PDOC ---
History of Present Illness(SKN HPI Comments 30 year old male presents to ER with complaints of wound check. Patient states he woke up this morning at 7 a.m. with associated pain/swelling/redness to right ankle that has since spread upwards towards his right knee. He rates his current pain a 8/10 and notes he has not been able to bear any weight on right leg. Patient presents to ER in wheelchair, in mild distress with vitals stable and also endorses associated chills x 1 day. Denies fever, body aches, n/v, calf pain or any further symptoms/complaints Chief Complaint: Lower Extremity Time Seen by MD: 19:19 Primary Care Provider: Dr. Levy History of Present Illness: Nurses Notes, Medications, Allergies Allergies: Coded Allergies: NO KNOWN ALLERGIES (Unverified , 02/08/23) Home Meds Active Scripts Sulfamethoxazole W/Trimethopri (Bactrim Ds Tablet) 1 Tab Tb, 1 TAB PO BID for 7 Days, #14 TAB Prov:GEORGIA FALK MD 01/20/25 Ibuprofen Micronized (Ibuprofen) 800 Mg Tab, 800 MG PO Q8HP PRN, #30 TAB Prov:JOSEPH PORTILLO MD 06/19/24 Ibuprofen Micronized (Ibuprofen) 600 Mg Tab, 600 MG PO TIDP PRN for 10 Days, #30 TAB 0 Refills Prov:MIRELLA HAYES INDUSTRIAL REGISTERED NURSE 04/15/24 Tramadol Hcl (Tramadol Hcl) 50 Mg Tab, 50 MG PO QID PRN for 7 Days, #28 TAB Prov:NOAH GUERRERO MD 01/28/24 Amoxicillin & Pot Clavulanate (Amoxicillin/Potassium Cla) 875 Mg Tab, 1 TAB PO BID for 7 Days, #14 TAB Prov:KIEL SNYDERP 11/13/23 Ibuprofen Micronized (Ibuprofen) 800 Mg Tab, 800 MG PO Q8HP PRN, #20 TAB Prov:JENNIFER PEÑA 02/08/23 Information Source: Patient Mode of Arrival: Ambulatory Past Medical History PAST MEDICAL HISTORY: Gallstones, HTN Surgical History: Appendectomy Family History Family History: Unknown Social History Smoker: Cigarettes, Less Than 1 Pack/Day Alcohol: Denies ETOH Use Drugs: Marijuana, Methamphetamine Lives In: Home Constitutional: reports: others (As stated in HPI) EENTM: denies: blurred vision, double vision, ear bleeding, ear discharge, ear drainage, ear pain, ear ringing, eye pain, eye redness, hearing loss, mouth pain, mouth swelling, nasal discharge, nose bleeding, nose congestion, nose pain, photophobia, tearing, throat pain, throat swelling, voice changes, others Respiratory: denies: cough, hemoptysis, orthopnea, SOB at rest, shortness of breath, SOB with excertion, stridor, wheezing, others Cardiovascular: denies: chest pain, dizzy spells, diaphoresis, Dyspnea on exertion, edema, irregular heart beat, left arm pain, lightheadedness, palpitations, PND, syncope, others Gastrointestinal: denies: abdomen distended, abdominal pain, blood streaked bowels, constipated, diarrhea, dysphagia, difficulty swallowing, hematemesis, melena, nausea, poor appetite, poor fluid intake, rectal bleeding, rectal pain, vomiting, others Genitourinary: denies: burning, dysuria, flank pain, frequency, hematuria, incontinence, penile discharge, penile sore, pain, testicle pain, testicle swelling, urgency, others Neurological: denies: dizziness, fainting, headache, left sided numbness, left sided weakness, numbness, paresthesia, pre-existing deficit, right sided numbness, right sided weakness, seizure, speech problems, tingling, tremors, weakness, others Musculoskeletal: denies: back pain, gout, joint pain, joint swelling, muscle pain, muscle stiffness, neck pain, others Integumetry: reports: others (As stated in HPI) Allergic/Immunocompromised: denies: Difficulty Healing, Frequent Infections, Hives, Itching, others Hematologic/Lymphatic: denies: anemia, blood clots, easy bleeding, easy bruising, swollen glands, others Endocrine: denies: excessive hunger, excessive sweating, excessive thirst, excessive urination, flushing, intolerance to cold, intolerance to heat, unexplained weight gain, unexplained weight loss, others Psychiatric: denies: anxiety, bipolar disorder, depression, hopeless, panic disorder, schizophrenia, sleepless, suicidal, others Physical Exam General Appearance: Mild Distress HEENT: PERRL/EOMI, Pharynx Normal Neck: Full Range of Motion, Non-Tender, Normal Respiratory: Chest Non-Tender, Lungs Clear, No Accessory Muscle Use, No Respiratory Distress, Normal Breath Sounds Cardiovascular: No Murmur, No Gallop, Regular Rate/Rhythm Breast Exam: Deferred Gastrointestinal: NOT DONE Genitalia: Deferred Pelvic: Deferred Rectal: Deferred Extremities: No calf tenderness, Normal capillary refill, Normal range of motion Musculoskeletal : Extremity Location: Ankle (TTP/swelling/erythema noted to right medial malleolus with moderate swelling/TTP/erythema noted extending upwards to right mid anterior leg. No fluctuance noted) Neurologic: Alert, No Motor Deficits, No Sensory Deficits Cerebellar Function: Normal Reflexes: Normal Skin: Dry, Warm Peripheral Pulses: 2+ femoral (R), 2+ femoral (L), 2+ dorsalis pedis (R), 2+ dorsalis pedis (L), 2+ Radial (R), 2+ Radial (L), 2+ Brachial (R), 2+ Brachial (L) Lymphatic: No Adenopathy Was a procedure done? Was a procedure done?: No Sedation Sedation?: No Differential Diagnosis (INTG) Differential Diagnosis: Puncture Wound Differential Diagnosis: Fracture Abscess: Abscess, Gas Gangrene Differential Diagnosis: Retained Foreign Body, Other (DVT) X-Ray, Labs, Meds, VS Vital Signs Date Time Temp Pulse Resp B/P (MAP) Pulse Ox O2 Delivery O2 Flow Rate FiO2 08/12/25 20:05 Room Air* 0 21 08/12/25 20:05 98.4 100 18 124/76 (92) 97 98.4 08/12/25 19:11 98.4 100 18 124/76 97 98.4 Lab Test 08/12/25 20:14 Range/Units White Blood Count 15.8 H 4.4-10.8 10^3/uL Red Blood Count 4.81 4.5-5.90 10^6/uL Hemoglobin 14.2 13.5-17.5 g/dL Hematocrit 42.6 41.0-53.0 % Mean Corpuscular Volume 88.6 80.0-100.0 fL Mean Corpuscular Hemoglobin 29.6 28.0-32.0 pg Mean Corpuscular Hemoglobin Concent 33.4 32.0-36.0 g/dL Red Cell Distribution Width 12.9 11.8-14.3 % Platelet Count 252 140-450 10^3/uL Mean Platelet Volume 8.7 6.9-10.8 fL Neutrophils (%) (Auto) 87.0 H 37.0-80.0 % Lymphocytes (%) (Auto) 6.7 L 10.0-50.0 % Monocytes (%) (Auto) 5.9 0.0-12.0 % Eosinophils (%) (Auto) 0.2 0.0-7.0 % Basophils (%) (Auto) 0.2 0.0-2.0 % Neutrophils # (Auto) 13.8 H 1.6-8.6 10 ^3/uL Lymphocytes # (Auto) 1.1 0.4-5.4 10 ^3/uL Monocytes # (Auto) 0.9 0-1.3 10 ^3/uL Eosinophils # (Auto) 0 0-0.8 10 ^3/uL Basophils # (Auto) 0 0-0.2 10 ^3/uL Nucleated Red Blood Cells 0.1 % Sodium Level 135 L 136-145 mmol/L Potassium Level 3.7 3.5-5.1 mmol/L Chloride Level 99 98-107 mmol/L Carbon Dioxide Level 28 20-31 mmol/L Anion Gap 8 5-15 Blood Urea Nitrogen 11 9-23 mg/dL Creatinine 0.93 0.700-1.30 mg/dL Glomerular Filtration Rate Calc 113 >90 mL/min BUN/Creatinine Ratio 11.8 10.0-20.0 Serum Glucose 103 74-106 mg/dL Lactic Acid Level 1.1 0.4-2.0 mmol/L Calcium Level 9.2 8.7-10.4 mg/dL Current Medications Medications (Trade) Dose Ordered Sig/Angelo Route Start Time Stop Time Status Last Admin Clindamycin Phosphate 50 ml @ 50 mls/hr ONCE ONCE IV 08/12/25 20:15 08/12/25 21:14 DC 08/12/25 20:50 Ceftriaxone Sodium 50 ml @ 100 mls/hr ONCE ONCE IV 08/12/25 20:15 08/12/25 20:44 DC 08/12/25 20:32 PATIENT: WENDY DELGADO JRACCT: [id number]: [id number] : 1995 LOC: ER ROOM / BED: / AGE / SEX: 30 / M ADM STATUS: REG ER SERVICE 18 ORDERING PHYSICIAN: BALBIR LINN PROCEDURE(s): RANKL - R ANKLE 3 VIEW REASON: right ankle pain ORDER NUMBER(s): [id number], ACCESSION NUMBER(s): [id number] CLINICAL INDICATION: right ankle pain TECHNIQUE: 3 radiographic views of the right ankle were obtained. Comparison: None FINDINGS/IMPRESSION: Distal tibia and fibula are intact normal alignment. No fractures or dislocations. There are no radiopaque foreign bodies. Soft tissue swelling over the medial malleolus. ATED BY: CHIARA WHITE Jr., DO DICTATED DATE/TIME: 08/12/251945 SIGNED BY: CHIARA WHITE Jr., DO SIGNED DATE/TIME: 08/12/251945 CC: PATIENT: WENDY DELGADO JRACCT: [id number] UNIT: [id number] : 1995 LOC: OVERFLOW ROOM / BED: [address] [place] [address] AGE / SEX: 30 / M ADM STATUS: ADM IN SERVICE 02 ORDERING PHYSICIAN: BALBIR LINN PROCEDURE(s): RLDVT - RT Lower DVT REASON: right leg pain ORDER NUMBER(s): [id number], ACCESSION NUMBER(s): [id number] RIGHT LOWER EXTREMITY VENOUS DUPLEX REASON FOR EXAMINATION: right leg pain. History of cellulitis. COMPARISON: XY R ANKLE 3 VIEW on DOS: 08/12/25 TECHNIQUE: Using real-time freeze-frame technique with a high-frequency transducer, multiple longitudinal and transverse sections were obtained. Simultaneous color flow and spectral Doppler imaging was performed. The veins from the groin to the popliteal fossa were evaluated. FINDINGS: There is good visualization of the deep venous system with no intraluminal filling defects identified. Normal venous compressibility is seen and there is flow augmentation. Color flow Doppler imaging is unremarkable. IMPRESSION: No evidence of femoropopliteal deep venous thrombosis. ATED BY: KISHORE SANDHU MD DICTATED DATE/TIME: 08/12/252103 SIGNED BY: KISHORE SANDHU MD SIGNED DATE/TIME: 08/12/252103 CC: CBC reviewed-WBC 15.8 BMP reviewed without any significant abnormalities Lactic acid reviewed-normal Blood cultures ordered Hep-Lock IV ordered Clindamycin 900 mg IV ordered Rocephin 1 g IV ordered Ibuprofen 800 mg p.o. ordered Right ankle x-ray reviewed Right lower DVT ultrasound reviewed Patient put up for admission orders for cellulitis of right lower extremity and continued need for IV antibiotics Images Reviewed?: Images reviewed and evaluated by me Time of 1ST Reevaluation: 19:54 Reevaluation 1ST: N/A Patient Education/Counseling: Diagnosis, Treatment, Prognosis, Need For Follow Up Family Education/Counseling: No Family Present SEPSIS Sepsis Screen Date sepsis recognized/suspect: Aug 12, 2025 Time Sepsis recognized/suspect: 1910 Recent Procedure: No On Antibiotic Therapy: No Respiratory Rate >20: No Heart Rate >90: Yes Temp<36 C (96.8 F) or >38.3 C: No SBP <90 or MAP <65 mmHG: No New Acute Mental Status Change: No Is the patient on CPAP, BIPAP,: No Physician Orders R Ankle 3 View (08/12/25 19:19) Heplock Iv (08/12/25 ) Blood Culture (08/12/25 20:03) Rt Lower Dvt (08/12/25 20:03) Vital Signs Date Time Temp Pulse Resp B/P (MAP) Pulse Ox O2 Delivery O2 Flow Rate FiO2 08/12/25 20:05 Room Air* 0 21 08/12/25 20:05 98.4 100 18 124/76 (92) 97 98.4 08/12/25 19:11 98.4 100 18 124/76 97 98.4 Laboratory Tests Test 08/12/25 20:14 Lactic Acid Level 1.1 mmol/L (0.4-2.0) White Blood Count 15.8 10^3/uL (4.4-10.8) H Medications Medications Dose Ordered Sig/Angelo Route Start Time Stop Time Status Last Admin Dose Admin Ceftriaxone Sodium 50 ml @ 100 mls/hr ONCE ONCE IV 08/12/25 20:15 08/12/25 20:44 DC 08/12/25 20:32 Clindamycin Phosphate 50 ml @ 50 mls/hr ONCE ONCE IV 08/12/25 20:15 08/12/25 21:14 DC 08/12/25 20:50 Departure 1 Departure Time of Disposition: 20:17 Impression: Primary Impression: Cellulitis of right lower extremity Additional Impression: Polysubstance abuse Disposition: 09 ADMITTED INPATIENT Condition: Stable Critical Care Note Critical Care Time?: No Stability Stability form required: No Heart Score Heart Score: Heart Score Response (Comments) Value History N/A 0 EKG N/A 0 Age N/A 0 Risk Factors N/A 0 Troponin N/A 0 Total 0 BALBIR LINN Aug 12, 2025 20:19
[2025-08-12] MEDS: CLINDAMYCIN 900MG IV 50 ML IV ONE (20:50)
--- NOTE | 2025-08-12 20:56 | DVHHP2 ---
Admitting Diagnosis: Cellulitis right lower extremity History of Present Illness 30 y/o male patient presents with c/o pain, swelling, and redness to right lower extremity. Patient also c/o wound to area. While in the emergency department the patient was evaluated by the provider, As per provider: Labs, vital signs, and imagining monitored. Patient will be admitted for further evaluation and treatment. I discussed admission with the patient/family and is in agreement to treatment plan. Allergies: Coded Allergies: NO KNOWN ALLERGIES (Unverified , 02/08/23) Home Meds Active Scripts Sulfamethoxazole W/Trimethopri (Bactrim Ds Tablet) 1 Tab Tb, 1 TAB PO BID for 7 Days, #14 TAB Prov:GEORGIA FALK MD 01/20/25 Ibuprofen Micronized (Ibuprofen) 800 Mg Tab, 800 MG PO Q8HP PRN, #30 TAB Prov:JOSEPH PORTILLO MD 06/19/24 Ibuprofen Micronized (Ibuprofen) 600 Mg Tab, 600 MG PO TIDP PRN for 10 Days, #30 TAB 0 Refills Prov:MIRELLA HAYES EARLY CHILDHOOD ASSISTANT 04/15/24 Tramadol Hcl (Tramadol Hcl) 50 Mg Tab, 50 MG PO QID PRN for 7 Days, #28 TAB Prov:NOAH GUERRERO MD 01/28/24 Amoxicillin & Pot Clavulanate (Amoxicillin/Potassium Cla) 875 Mg Tab, 1 TAB PO BID for 7 Days, #14 TAB Prov:KIEL SNYDER PETROPHYSICAL ENGINEER 11/13/23 Ibuprofen Micronized (Ibuprofen) 800 Mg Tab, 800 MG PO Q8HP PRN, #20 TAB Prov:JENNIFER PEÑA PAC 02/08/23 Current Medications Current Medications Medications (Trade) Dose Ordered Sig/Angelo Route PRN Reason Start Time Stop Time Status Last Admin Sodium Chloride 1,000 ml @ 120 mls/hr Q8H20M IV 08/12/25 21:00 08/13/25 14:22 Acetaminophen/ Hydrocodone Bitart ([place] 5/325MG Tab) 1 tab Q4HP PRN PO MODERATE PAIN (4-6 PAIN SCALE) 08/12/25 21:00 Temazepam (Restoril) 15 mg QHSP PRN PO FOR INSOMNIA 08/12/25 21:00 Ondansetron HCl (Zofran) 4 mg Q4HP PRN IV NAUSEA / VOMITING 08/12/25 21:00 Docusate Sodium (Colace Capsule) 100 mg BIDPRN PRN PO FOR CONSTIPATION 08/12/25 21:00 Acetaminophen (Tylenol Tablet) 650 mg Q6HP PRN PO PAIN SCALE 1-3 OR TEMP>100.4 08/12/25 21:00 08/13/25 18:29 Morphine Sulfate 2 mg Q4HPRN PRN IV SEVERE PAIN (7-10 PAIN SCALE) 08/12/25 21:00 Enoxaparin Sodium (Lovenox) 40 mg DAILY SC 08/13/25 10:00 08/13/25 11:49 DC Piperacillin Sod/ Tazobactam Sod 100 ml @ 25 mls/hr Q6H IV 08/13/25 13:35 08/13/25 14:21 Review of Systems Constitutional: denies chills, denies fever, denies malaise Eyes: denies eye pain, denies vision change ENT: denies ear pain, denies headache, denies nasal congestion, denies painful swallowing, denies voice change Cardiovascular: denies chest pain, denies edema, denies orthopnea, denies palpitations, denies paroxysmal nocturnal dyspnea Respiratory: denies cough, denies shortness of breath Gastrointestinal: denies constipation, denies diarrhea, denies nausea, denies vomiting Genitourinary: denies dysuria, denies frequent urination, denies urethral discharge Musculoskeletal: denies back pain, denies joint pain, denies muscle pain Skin: denies bruising, denies itching, denies rash Neurological: denies focal weakness, denies headache, denies sensory changes Psychiatric: denies anxiety, denies depression Endocrine: denies polydipsia, denies polyuria Hematologic/Lymphatic: denies easy bleeding, denies easy bruising, denies enlarged lymph nodes Allergic/Immunologic: denies allergy, denies hives Vital Signs Vital Signs Date Time Temp Pulse Resp B/P (MAP) Pulse Ox O2 Delivery O2 Flow Rate FiO2 08/13/25 18:29 101.2 08/13/25 17:50 Room Air* 0 21 08/13/25 13:00 115 14 155/94 (114) 95 Physical Exam General Appearance: alert, no distress HEENT: EOMI, PERRLA, normal external inspect of ears, no icterus, no nasal drainage Neck: no carotid bruit, no jugular venous distention (JVD), no lymphadenopathy Chest: normal thorax Respiratory: clear to auscultation, normal air movement Cardiovascular: regular rate and rhythm, no diastolic murmur, no jugular venous distention (JVD), no rub, no systolic murmur Abdominal: soft, no hepatomegaly, no mass, no splenomegaly, no tenderness Genitourinary: grossly normal external Musculoskeletal: no joint tenderness, no swelling Extremities: normal pulses, no calf tenderness, no clubbing, no cyanosis, no edema Skin: no bruising, no jaundice, no rash Neurological: alert, No focal deficit SEPSIS Sepsis Screen Date sepsis recognized/suspect: Aug 12, 2025 Time Sepsis recognized/suspect: 1910 Recent Procedure: No On Antibiotic Therapy: No Respiratory Rate >20: No Heart Rate >90: Yes Temp<36 C (96.8 F) or >38.3 C: No SBP <90 or MAP <65 mmHG: No New Acute Mental Status Change: No Is the patient on CPAP, BIPAP,: No Physician Orders R Ankle 3 View (08/12/25 19:19) Heplock Iv (08/12/25 ) Blood Culture (08/12/25 20:03) Rt Lower Dvt (08/12/25 20:03) Admit (08/12/25 20:53) Code Status (08/12/25 20:53) Sodium Chloride 0.9% (08/12/25 21:00) Hydrocodone-Acet 5/325mg Tab ([place] 5/32 (08/12/25 21:00) Temazepam (Restoril) (08/12/25 21:00) Ondansetron Hcl (Zofran) (08/12/25 21:00) Docusate Sodium Capsule (Colace Capsule) (08/12/25 21:00) Cardiac Diet-2gna,Lofat,Lochol (08/13/25 Breakfast) Condition: Stable (08/12/25 20:53) Acetaminophen Tablet (Tylenol Tablet) (08/12/25 21:00) Morphine Sulfate Injection (08/12/25 21:00) Drug Screen (08/12/25 20:53) Drug Screen (08/13/25 11:27) Piperacillin-Tazob 3.375gm (Zosyn 3.375g (08/13/25 13:35) Vital Signs Date Time Temp Pulse Resp B/P (MAP) Pulse Ox O2 Delivery O2 Flow Rate FiO2 08/13/25 18:29 101.2 08/13/25 17:50 Room Air* 0 21 08/13/25 13:00 98.4 115 14 155/94 (114) 95 98.4 08/13/25 10:34 98.5 08/13/25 09:31 101.1 106 16 128/80 (96) 96 101.1 08/13/25 09:29 101.1 08/13/25 04:40 98.8 94 20 138/83 (101) 95 98.8 08/13/25 00:18 98.5 93 15 123/84 (97) 97 98.5 08/12/25 20:05 Room Air* 0 21 08/12/25 20:05 98.4 100 18 124/76 (92) 97 98.4 08/12/25 19:11 98.4 100 18 124/76 97 98.4 Laboratory Tests Test 08/12/25 20:14 Lactic Acid Level 1.1 mmol/L (0.4-2.0) White Blood Count 15.8 10^3/uL (4.4-10.8) H Medications Medications Dose Ordered Sig/Angelo Route Start Time Stop Time Status Last Admin Dose Admin Piperacillin Sod/ Tazobactam Sod 100 ml @ 25 mls/hr Q6H IV 08/13/25 13:35 08/13/25 14:21 Results Labs Test 08/13/25 03:46 08/12/25 20:14 Range/Units Sodium Level 134 L 136-145 mmol/L Potassium Level 3.9 3.5-5.1 mmol/L Chloride Level 100 98-107 mmol/L Carbon Dioxide Level 26 20-31 mmol/L Anion Gap 8 5-15 Blood Urea Nitrogen 9 9-23 mg/dL Creatinine 0.81 0.700-1.30 mg/dL Glomerular Filtration Rate Calc 121 >90 mL/min BUN/Creatinine Ratio 11.1 10.0-20.0 Serum Glucose 87 74-106 mg/dL Calcium Level 8.8 8.7-10.4 mg/dL Total Bilirubin 0.6 0.2-1.0 mg/dL Aspartate Amino Transferase (AST) 30 13-40 U/L Alanine Aminotransferase (ALT) 22 7-40 U/L Alkaline Phosphatase 69 46-116 U/L Total Protein 6.9 5.7-8.2 g/dL Albumin 3.9 3.2-4.8 g/dL White Blood Count 15.8 H 4.4-10.8 10^3/uL Red Blood Count 4.81 4.5-5.90 10^6/uL Hemoglobin 14.2 13.5-17.5 g/dL Hematocrit 42.6 41.0-53.0 % Mean Corpuscular Volume 88.6 80.0-100.0 fL Mean Corpuscular Hemoglobin 29.6 28.0-32.0 pg Mean Corpuscular Hemoglobin Concent 33.4 32.0-36.0 g/dL Red Cell Distribution Width 12.9 11.8-14.3 % Platelet Count 252 140-450 10^3/uL Mean Platelet Volume 8.7 6.9-10.8 fL Neutrophils (%) (Auto) 87.0 H 37.0-80.0 % Lymphocytes (%) (Auto) 6.7 L 10.0-50.0 % Monocytes (%) (Auto) 5.9 0.0-12.0 % Eosinophils (%) (Auto) 0.2 0.0-7.0 % Basophils (%) (Auto) 0.2 0.0-2.0 % Neutrophils # (Auto) 13.8 H 1.6-8.6 10 ^3/uL Lymphocytes # (Auto) 1.1 0.4-5.4 10 ^3/uL Monocytes # (Auto) 0.9 0-1.3 10 ^3/uL Eosinophils # (Auto) 0 0-0.8 10 ^3/uL Basophils # (Auto) 0 0-0.2 10 ^3/uL Nucleated Red Blood Cells 0.1 % Lactic Acid Level 1.1 0.4-2.0 mmol/L Plan 1. Cellulitis right lower extremity Monitor, IV abx 2. Polysubstance abuse Monitor, urine drug screen Plan discussed with: Patient, Other JOHNCUATECEFERINO Hinojosa NP Aug 12, 2025 20:56
[2025-08-12 20:58] LABS: Hematocrit 42.6 % (41.0-53.0); Hemoglobin 14.2 g/dL (13.5-17.5); Mean Corpuscular Hemoglobin 29.6 pg (28.0-32.0); Mean Corpuscular Volume 88.6 fL (80.0-100.0); Nucleated Red Blood Cells % 0.1 %
[2025-08-12] MEDS ORDERED: ONDANSETRON HCL 4 MG/2 ML VIAL IV PRN (21:00)
[2025-08-12] MEDS ORDERED: TEMAZEPAM 15 MG CAP PO PRN (21:00)
[2025-08-12] MEDS ORDERED: MORPHINE SULFATE INJ 2 MG/ml SYRG IV PRN (21:00)
[2025-08-12 21:06] LABS: Chloride 99 mmol/L (98-107); Potassium 3.7 mmol/L (3.5-5.1)
--- NOTE | 2025-08-12 21:06 | DVH ---
RIGHT LOWER EXTREMITY VENOUS DUPLEX REASON FOR EXAMINATION: right leg pain. History of cellulitis. COMPARISON: XY R ANKLE 3 VIEW on DOS: 08/12/25 TECHNIQUE: Using real-time freeze-frame technique with a high-frequency transducer, multiple longitu dinal and transverse sections were obtained. Simultaneous color flow and spectral Doppler imaging wa s performed. The veins from the groin to the popliteal fossa were evaluated. FINDINGS: There is good visualization of the deep venous system with no intraluminal filling defects identified. Normal venous compressibility is seen and there is flow augmentation. Color flow Doppler imaging is unremarkable. IMPRESSION: No evidence of femoropopliteal deep venous thrombosis.
[2025-08-12 21:07] LABS: Anion Gap 8 (5-15); Carbon Dioxide 28 mmol/L (20-31)
[2025-08-12 21:08] LABS: Calcium 9.2 mg/dL (8.7-10.4)
[2025-08-12 21:13] LABS: BUN/Creatinine Ratio 11.8 (10.0-20.0); Blood Urea Nitrogen 11 mg/dL (9-23); Glucose 103 mg/dL (74-106)
[2025-08-12 21:19] LABS: Sodium 135 mmol/L (136-145)
[2025-08-13] VITALS (7 sets, daily range): BP systolic 123–155; BP diastolic 78–95; PULSE 85–115; RESP 14–20; TEMP 98–101.1; O2SAT 95–98
[2025-08-13] MEDS: SODIUM CHLORIDE 0.9% 1,000 ML IV SCH (00:24)
[2025-08-13 05:25] LABS: Alanine Aminotransferase 22 U/L (7-40); Albumin 3.9 g/dL (3.2-4.8); Alkaline Phosphatase 69 U/L (46-116); Anion Gap 8 (5-15); BUN/Creatinine Ratio 11.1 (10.0-20.0); Calcium 8.8 mg/dL (8.7-10.4); Carbon Dioxide 26 mmol/L (20-31); Chloride 100 mmol/L (98-107); Glucose 87 mg/dL (74-106); Potassium 3.9 mmol/L (3.5-5.1); Total Protein 6.9 g/dL (5.7-8.2)
[2025-08-13 05:26] LABS: Bilirubin, Total 0.6 mg/dL (0.2-1.0)
[2025-08-13 05:27] LABS: Blood Urea Nitrogen 9 mg/dL (9-23); Sodium 134 mmol/L (136-145)
[2025-08-13] MEDS: ACETAMINOPHEN 325 MG TAB PO PRN (09:29)
[2025-08-13] MEDS: ENOXAPARIN SOD 40 MG/0.4 ML SYRINGE SC SCH (10:00)
--- NOTE | 2025-08-13 11:29 | DVHPN2 ---
Progress Note - Dictate Date Seen: Aug 13, 2025 Medical Necessity Reason Pt with a Central, PICC or Fol: No vital signs Vital Sign Date Time Temp Pulse Resp B/P (MAP) Pulse Ox O2 Delivery O2 Flow Rate FiO2 08/13/25 10:34 98.5 08/13/25 09:31 106 16 128/80 (96) 96 08/12/25 20:05 Room Air* 0 21 Total Intake and Output 08/12/25 08/12/25 08/13/25 15:00 23:00 07:00 Intake Total 100 ml Balance 100 ml medications Current Medications Medications Dose Ordered Sig/Angelo Route Start Time Stop Time Status Last Admin Dose Admin Sodium Chloride 1,000 ml @ 120 mls/hr Q8H20M IV 08/12/25 21:00 08/13/25 00:24 120 MLS/HR Acetaminophen/ Hydrocodone Bitart 1 tab Q4HP PRN PO 08/12/25 21:00 Temazepam 15 mg QHSP PRN PO 08/12/25 21:00 Ondansetron HCl 4 mg Q4HP PRN IV 08/12/25 21:00 Docusate Sodium 100 mg BIDPRN PRN PO 08/12/25 21:00 Acetaminophen 650 mg Q6HP PRN PO 08/12/25 21:00 08/13/25 09:29 650 MG Morphine Sulfate 2 mg Q4HPRN PRN IV 08/12/25 21:00 Enoxaparin Sodium 40 mg DAILY SC 08/13/25 10:00 objective General Appearance: alert, no distress HEENT: EOMI, PERRLA, normal external inspect of ears, no icterus, no nasal drainage Neck: no carotid bruit, no jugular venous distention (JVD), no lymphadenopathy Chest: normal thorax Respiratory: clear to auscultation, normal air movement Cardiovascular: regular rate and rhythm, no diastolic murmur, no jugular venous distention (JVD), no rub, no systolic murmur Abdominal: soft, no hepatomegaly, no mass, no splenomegaly, no tenderness Genitourinary: grossly normal external Musculoskeletal: no joint tenderness, no swelling Extremities: normal pulses, no calf tenderness, no clubbing, no cyanosis, no edema Skin: no bruising, no jaundice, no rash Neurological: alert, No focal deficit laboratory and microbiology Laboratory Tests 08/13/25 03:46 08/12/25 20:14 Test 08/13/25 03:46 Range/Units Serum Glucose 87 74-106 mg/dL Problem List 1. Cellulitis right lower extremity Monitor, IV abx 2. Polysubstance abuse Monitor, urine drug screen Assessment/Plan Subjective: Patient is awake and alert. Objective: Patient was admitted for right lower extremity cellulitis. Patient was started on antibiotics. Patient is still complaining of some pain and swelling. Plan: Continue pain medication as needed. Continue IV fluids. Continue IV antibiotics. Urine drug screen. Plan discussed with: Patient, Other CUATE LOPEZ GENERAL ASSISTANT Aug 13, 2025 11:29
[2025-08-13] MEDS: PIPERACILLIN-TAZOB 3.375GM 100 ML IV SCH (14:21)
[2025-08-13 23:23] LABS: Amphetamine Screen, Urine Pos (NEGATIVE); Barbiturate Scree,Urine Neg (NEGATIVE); Benzodiazephine Screen, Urine Neg (NEGATIVE); Cannabinoid Screen, Urine Neg (NEGATIVE); Cocaine Screen, Urine Neg (NEGATIVE); Opiate Scree,Urine Neg (NEGATIVE); Phencyclidine Screen, Urine Neg (NEGATIVE)
[2025-08-14 05:00] VITALS: BP 135/84; PULSE 82; RESP 18; TEMP 97.9; O2SAT 94
[2025-08-14] MEDS: HYDROcodone-ACET 5/325MG TAB PO PRN (05:50)
[2025-08-14 08:46] VITALS: BP 120/70; PULSE 78; RESP 18; TEMP 97.1; O2SAT 95
[2025-08-14] MEDS ORDERED: VANCOMYCIN PER PHARMACY 0 MG IV SCH (09:15)
[2025-08-14 13:00] VITALS: BP 125/80; PULSE 76; RESP 20; TEMP 98.4; O2SAT 95
[2025-08-14] MEDS: VANCOMYCIN 1GM/250ML KIT 250 ML IV SCH (13:08)
[2025-08-14 17:00] VITALS: BP 135/86; PULSE 85; RESP 20; TEMP 99; O2SAT 96
--- NOTE | 2025-08-14 17:41 | DVHPN2 ---
Progress Note - Dictate Date Seen: Aug 14, 2025 Medical Necessity Reason Pt with a Central, PICC or Fol: No vital signs Vital Sign Date Time Temp Pulse Resp B/P (MAP) Pulse Ox O2 Delivery O2 Flow Rate FiO2 08/14/25 13:00 98.4 76 20 125/80 (95) 95 98.4 08/14/25 08:00 Room Air* 0 21 Total Intake and Output 08/13/25 08/13/25 08/14/25 15:00 23:00 07:00 Intake Total 100 ml 800 ml Output Total 750 ml Balance 100 ml 50 ml medications Current Medications Medications Dose Ordered Sig/Angelo Route Start Time Stop Time Status Last Admin Dose Admin Acetaminophen/ Hydrocodone Bitart 1 tab Q4HP PRN PO 08/12/25 21:00 08/14/25 05:50 1 TAB Temazepam 15 mg QHSP PRN PO 08/12/25 21:00 Ondansetron HCl 4 mg Q4HP PRN IV 08/12/25 21:00 Docusate Sodium 100 mg BIDPRN PRN PO 08/12/25 21:00 Acetaminophen 650 mg Q6HP PRN PO 08/12/25 21:00 08/13/25 18:29 650 MG Morphine Sulfate 2 mg Q4HPRN PRN IV 08/12/25 21:00 Piperacillin Sod/ Tazobactam Sod 100 ml @ 25 mls/hr Q6H IV 08/13/25 13:35 08/14/25 16:09 25 MLS/HR Vancomycin HCl 0 ml @ 0 mls/hr UD IV 08/14/25 09:15 Vancomycin HCl 350 ml @ 200 mls/hr Q12H IV 08/15/25 01:00 objective General Appearance: alert, no distress HEENT: EOMI, PERRLA, normal external inspect of ears, no icterus, no nasal drainage Neck: no carotid bruit, no jugular venous distention (JVD), no lymphadenopathy Chest: normal thorax Respiratory: clear to auscultation, normal air movement Cardiovascular: regular rate and rhythm, no diastolic murmur, no jugular venous distention (JVD), no rub, no systolic murmur Abdominal: soft, no hepatomegaly, no mass, no splenomegaly, no tenderness Genitourinary: grossly normal external Musculoskeletal: no joint tenderness, no swelling Extremities: normal pulses, no calf tenderness, no clubbing, no cyanosis, no edema Skin: no bruising, no jaundice, no rash Neurological: alert, No focal deficit laboratory and microbiology Laboratory Tests 08/13/25 03:46 08/12/25 20:14 Test 08/13/25 03:46 Range/Units Serum Glucose 87 74-106 mg/dL Problem List 1. Cellulitis right lower extremity Monitor, IV abx 2. Polysubstance abuse Monitor, urine drug screen Assessment/Plan Subjective Patient is awake and alert. Objective Patient has pain and swelling with redness to his right lower extremity. Patient states he thinks he had a scratch at 1 time. Plan Continue Zosyn. Add vancomycin. Patient is positive for methamphetamine. I advised him to stop methamphetamine. Continue pain medication as needed. Dietary Evaluation Review Comments: Monitor PO intake, lab values, weight trend, and I/O Expected Outcomes/Goals: Intake to meet >75% estimated needs Fu 3-5 days Plan discussed with: Patient, Other CUATE LOPEZ NP Aug 14, 2025 17:41
[2025-08-14 20:20] VITALS: PULSE 83; RESP 18
[2025-08-14 21:00] VITALS: BP 133/75; PULSE 83; RESP 18; TEMP 98.3; O2SAT 95
[2025-08-15] VITALS (8 sets, daily range): BP systolic 127–143; BP diastolic 77–102; PULSE 70–85; RESP 16–18; TEMP 98.2–98.6; O2SAT 94–97
[2025-08-15] MEDS: VANCOMYCIN 1.75GM/350ML 350 ML IV SCH (00:49)
[2025-08-15] MEDS ORDERED: VANCOMYCIN 1.75GM/350ML 350 ML IV SCH (13:30)
--- NOTE | 2025-08-15 14:14 | DVHPN2 ---
Progress Note - Dictate Date Seen: Aug 15, 2025 Medical Necessity Reason Pt with a Central, PICC or Fol: No vital signs Vital Sign Date Time Temp Pulse Resp B/P (MAP) Pulse Ox O2 Delivery O2 Flow Rate FiO2 08/15/25 13:00 98.5 75 17 143/89 (107) 95 98.5 08/15/25 07:50 Room Air* 0 21 Total Intake and Output 08/14/25 08/14/25 08/15/25 15:00 23:00 07:00 Intake Total 100 ml 800 ml 2050 ml Output Total 1800 ml 60 ml Balance 100 ml -1000 ml 1990 ml medications Current Medications Medications Dose Ordered Sig/Angelo Route Start Time Stop Time Status Last Admin Dose Admin Acetaminophen/ Hydrocodone Bitart 1 tab Q4HP PRN PO 08/12/25 21:00 08/14/25 05:50 1 TAB Temazepam 15 mg QHSP PRN PO 08/12/25 21:00 Ondansetron HCl 4 mg Q4HP PRN IV 08/12/25 21:00 Docusate Sodium 100 mg BIDPRN PRN PO 08/12/25 21:00 Acetaminophen 650 mg Q6HP PRN PO 08/12/25 21:00 08/13/25 18:29 650 MG Morphine Sulfate 2 mg Q4HPRN PRN IV 08/12/25 21:00 Piperacillin Sod/ Tazobactam Sod 100 ml @ 25 mls/hr Q6H IV 08/13/25 13:35 08/15/25 08:29 25 MLS/HR Vancomycin HCl 0 ml @ 0 mls/hr UD IV 08/14/25 09:15 Vancomycin HCl 350 ml @ 200 mls/hr Q12H IV 08/15/25 01:00 08/15/25 13:06 200 MLS/HR Vancomycin HCl 350 ml @ 200 mls/hr Q12H IV 08/15/25 13:30 UNV objective General Appearance: alert, no distress HEENT: EOMI, PERRLA, normal external inspect of ears, no icterus, no nasal drainage Neck: no carotid bruit, no jugular venous distention (JVD), no lymphadenopathy Chest: normal thorax Respiratory: clear to auscultation, normal air movement Cardiovascular: regular rate and rhythm, no diastolic murmur, no jugular venous distention (JVD), no rub, no systolic murmur Abdominal: soft, no hepatomegaly, no mass, no splenomegaly, no tenderness Genitourinary: grossly normal external Musculoskeletal: no joint tenderness, no swelling Extremities: normal pulses, no calf tenderness, no clubbing, no cyanosis, no edema Skin: no bruising, no jaundice, no rash Neurological: alert, No focal deficit laboratory and microbiology Laboratory Tests 08/15/25 05:49 08/13/25 03:46 08/12/25 20:14 Test 08/13/25 03:46 Range/Units Serum Glucose 87 74-106 mg/dL Problem List 1. Cellulitis right lower extremity Monitor, IV abx 2. Polysubstance abuse Monitor, urine drug screen Assessment/Plan Subjective Patient is awake and alert. Objective Patient has some mild improvement to his right lower extremity cellulitis. Patient was on Zosyn and vancomycin was added yesterday and it appears to be improving. Patient still is sensitive to his right lower extremity. Continue current treatment. Patient was positive for methamphetamines. Plan Continue antibiotics. DC planning on Sunday. Dietary Evaluation Review Comments: Monitor PO intake, lab values, weight trend, and I/O Expected Outcomes/Goals: Intake to meet >75% estimated needs Fu 3-5 days Plan discussed with: Patient, Other CUATE LOPEZ NP Aug 15, 2025 14:14
[2025-08-15] MEDS: DOCUSATE SOD 100 MG CAP PO PRN (17:01)
[2025-08-16] VITALS (7 sets, daily range): BP systolic 123–184; BP diastolic 78–93; PULSE 67–90; RESP 17–20; TEMP 97.7–98.5; O2SAT 92–96
[2025-08-16 01:08] LABS: Hematocrit 43.0 % (41.0-53.0); Hemoglobin 14.3 g/dL (13.5-17.5); Mean Corpuscular Hemoglobin 29.6 pg (28.0-32.0); Mean Corpuscular Volume 88.6 fL (80.0-100.0); Nucleated Red Blood Cells % 0.1 %
[2025-08-16 01:49] LABS: Chloride 101 mmol/L (98-107); Potassium 4.1 mmol/L (3.5-5.1); Sodium 136 mmol/L (136-145)
[2025-08-16 01:50] LABS: Anion Gap 8 (5-15); Calcium 9.3 mg/dL (8.7-10.4); Carbon Dioxide 27 mmol/L (20-31)
[2025-08-16 01:55] LABS: BUN/Creatinine Ratio 10.9 (10.0-20.0); Blood Urea Nitrogen 11 mg/dL (9-23); Glucose 100 mg/dL (74-106)
[2025-08-16] MEDS: VANCOMYCIN 1.75GM/350ML 350 ML IV SCH (02:10)
[2025-08-16] MEDS: VANCOMYCIN 1.5GM/250ML 250 ML IV SCH (10:38)
--- NOTE | 2025-08-16 13:31 | DVHPN2 ---
Progress Note - Dictate Date Seen: Aug 16, 2025 Medical Necessity Reason Pt with a Central, PICC or Fol: No vital signs Vital Sign Date Time Temp Pulse Resp B/P (MAP) Pulse Ox O2 Delivery O2 Flow Rate FiO2 08/16/25 12:53 98.0 73 20 123/83 (96) 95 98.0 08/16/25 08:07 Room Air* 0 21 Total Intake and Output 08/15/25 08/15/25 08/16/25 14:59 22:59 06:59 Intake Total 450 ml 1000 ml 300 ml Output Total 1200 ml 1500 ml Balance 450 ml -200 ml -1200 ml medications Current Medications Medications Dose Ordered Sig/Angelo Route Start Time Stop Time Status Last Admin Dose Admin Acetaminophen/ Hydrocodone Bitart 1 tab Q4HP PRN PO 08/12/25 21:00 08/14/25 05:50 1 TAB Temazepam 15 mg QHSP PRN PO 08/12/25 21:00 Ondansetron HCl 4 mg Q4HP PRN IV 08/12/25 21:00 Docusate Sodium 100 mg BIDPRN PRN PO 08/12/25 21:00 08/15/25 17:01 100 MG Acetaminophen 650 mg Q6HP PRN PO 08/12/25 21:00 08/13/25 18:29 650 MG Morphine Sulfate 2 mg Q4HPRN PRN IV 08/12/25 21:00 Piperacillin Sod/ Tazobactam Sod 100 ml @ 25 mls/hr Q6H IV 08/13/25 13:35 08/16/25 08:17 25 MLS/HR Vancomycin HCl 0 ml @ 0 mls/hr UD IV 08/14/25 09:15 Vancomycin HCl 350 ml @ 200 mls/hr Q12H IV 08/15/25 13:30 UNV Vancomycin HCl 250 ml @ 166.667 mls/hr Q12H IV 08/16/25 11:00 08/16/25 10:38 166.667 MLS/HR objective General Appearance: alert, no distress HEENT: EOMI, PERRLA, normal external inspect of ears, no icterus, no nasal drainage Neck: no carotid bruit, no jugular venous distention (JVD), no lymphadenopathy Chest: normal thorax Respiratory: clear to auscultation, normal air movement Cardiovascular: regular rate and rhythm, no diastolic murmur, no jugular venous distention (JVD), no rub, no systolic murmur Abdominal: soft, no hepatomegaly, no mass, no splenomegaly, no tenderness Genitourinary: grossly normal external Musculoskeletal: no joint tenderness, no swelling Extremities: normal pulses, no calf tenderness, no clubbing, no cyanosis, no edema Skin: no bruising, no jaundice, no rash Neurological: alert, No focal deficit laboratory and microbiology Laboratory Tests 08/16/25 00:56 Test 08/16/25 00:56 Range/Units Serum Glucose 100 74-106 mg/dL Problem List 1. Cellulitis right lower extremity Monitor, IV abx 2. Polysubstance abuse Monitor, urine drug screen Assessment/Plan Subjective Patient is awake and alert. Objective Patient has resolving right lower lobe cellulitis. There is some improvement since initiation of vancomycin with Zosyn. Patient states he thinks he had some sort of an abrasion several days ago and it became very red and inflamed. Plan Continue antibiotics vancomycin and Zosyn. Possible transition to oral antibiotics in a.m. DC planning for tomorrow. Dietary Evaluation Review Comments: Monitor PO intake, lab values, weight trend, and I/O Expected Outcomes/Goals: Intake to meet >75% estimated needs Fu 3-5 days Plan discussed with: Patient, Other CUATE LOPEZ NP Aug 16, 2025 13:31
[2025-08-17 01:13] VITALS: BP 129/80; PULSE 74; RESP 18; TEMP 97.9; O2SAT 94
[2025-08-17 04:56] VITALS: BP 143/94; PULSE 73; RESP 17; TEMP 97.9; O2SAT 94
[2025-08-17 08:00] VITALS: RESP 18
[2025-08-17 08:02] LABS: Hematocrit 42.9 % (41.0-53.0); Hemoglobin 14.8 g/dL (13.5-17.5); Mean Corpuscular Hemoglobin 30.0 pg (28.0-32.0); Mean Corpuscular Volume 86.9 fL (80.0-100.0); Nucleated Red Blood Cells % 0.2 %
[2025-08-17 09:00] VITALS: BP 135/92; PULSE 73; RESP 18; TEMP 97.7; O2SAT 95
[2025-08-17] MEDS ORDERED: CEFD300C2 PO (09:51)
[2025-08-17] MEDS ORDERED: BACDST PO (09:51)
[2025-08-17] MEDS ORDERED: HYDR-4798 PO (09:51)
--- NOTE | 2025-08-17 09:54 | DVHDS2 ---
Discharge Summary Date of Admission Aug 12, 2025 at 20:53 Date of Discharge: Aug 17, 2025 Labs/Diagnostic Data: Laboratory Results Test 08/17/25 07:07 08/16/25 00:56 08/13/25 20:35 08/13/25 03:46 White Blood Count 5.4 10^3/uL (4.4-10.8) Red Blood Count 4.93 10^6/uL (4.5-5.90) Hemoglobin 14.8 g/dL (13.5-17.5) Hematocrit 42.9 % (41.0-53.0) Mean Corpuscular Volume 86.9 fL (80.0-100.0) Mean Corpuscular Hemoglobin 30.0 pg (28.0-32.0) Mean Corpuscular Hemoglobin Concent 34.5 g/dL (32.0-36.0) Red Cell Distribution Width 13.1 % (11.8-14.3) Platelet Count 360 10^3/uL (140-450) Mean Platelet Volume 8.0 fL (6.9-10.8) Neutrophils (%) (Auto) 56.8 % (37.0-80.0) Lymphocytes (%) (Auto) 24.2 % (10.0-50.0) Monocytes (%) (Auto) 12.7 % (0.0-12.0) Eosinophils (%) (Auto) 5.7 % (0.0-7.0) Basophils (%) (Auto) 0.6 % (0.0-2.0) Neutrophils # (Auto) 3.1 10 ^3/uL (1.6-8.6) Lymphocytes # (Auto) 1.3 10 ^3/uL (0.4-5.4) Monocytes # (Auto) 0.7 10 ^3/uL (0-1.3) Eosinophils # (Auto) 0.3 10 ^3/uL (0-0.8) Basophils # (Auto) 0 10 ^3/uL (0-0.2) Nucleated Red Blood Cells 0.2 % Creatinine 1.08 mg/dL (0.700-1.30) Glomerular Filtration Rate Calc 94 mL/min (>90) Sodium Level 136 mmol/L (136-145) Potassium Level 4.1 mmol/L (3.5-5.1) Chloride Level 101 mmol/L (98-107) Carbon Dioxide Level 27 mmol/L (20-31) Anion Gap 8 (5-15) Blood Urea Nitrogen 11 mg/dL (9-23) BUN/Creatinine Ratio 10.9 (10.0-20.0) Serum Glucose 100 mg/dL (74-106) Calcium Level 9.3 mg/dL (8.7-10.4) Vancomycin Level Trough 10.4 ug/mL (5-10) Urine Opiates Screen Neg (NEGATIVE) Urine Fentanyl Screen Neg (NEGATIVE) Urine Barbiturates Screen Neg (NEGATIVE) Urine Phencyclidine Screen Neg (NEGATIVE) Urine Amphetamines Screen Pos (NEGATIVE) Urine Benzodiazepines Screen Neg (NEGATIVE) Urine Cocaine Screen Neg (NEGATIVE) Urine Cannabinoids Screen Neg (NEGATIVE) Total Bilirubin 0.6 mg/dL (0.2-1.0) Aspartate Amino Transferase (AST) 30 U/L (13-40) Alanine Aminotransferase (ALT) 22 U/L (7-40) Alkaline Phosphatase 69 U/L (46-116) Total Protein 6.9 g/dL (5.7-8.2) Albumin 3.9 g/dL (3.2-4.8) Test 08/12/25 20:14 Lactic Acid Level 1.1 mmol/L (0.4-2.0) Other Laboratory Tests 08/17/25 07:07 08/16/25 00:56 Brief Hx & Hospital Course: 30 y/o male patient presents with c/o pain, swelling, and redness to right lower extremity. Patient also c/o wound to area. Patient was admitted for pain, redness, and swelling to his right lower extremity. He was started on antibiotics, and his condition improved over the weekend. The patient was discharged home on cefdinir and Bactrim and instructed to follow up with his primary care provider in one week. He was also counseled to abstain from methamphetamine use. The patient received proper medical treatment and medications. Vital signs, Imaging and Laboratory Work was monitored daily. All consults recommendations were followed as provided. There were no complaints or new complaints upon discharge, all questions and concerns were answered. Patient was advised to return to the ER or call 911 if any headaches, dizziness, shortness of breath, chest pain, bleeding, fevers, or worsening of medical condition. Patient/Family was counseled about treatment plan, medications, possible side effects, patient verbalized understanding. All questions were answered to the best of my ability. The patient symptoms improved and they are okay to be DC. Condition at Discharge: Stable Final Diagnosis/Problems List Cellulitis right lower extremity Polysubstance abuse Discharge Disposition: Home with Health Services Discharge Instruct/Medications Diet: Regular Activity: No Restrictions, As Tolerated Follow Up/Referral: pcp 1 week Scheduled Cefdinir (Cefdinir), 1 CAP PO BID Sulfamethoxazole W/Trimethopri (Bactrim Ds Tablet), 1 TAB PO BID Scheduled PRN Hydrocodone-Acetaminophen (Hydrocodone Bitartrate/AC 10-325 mg), 1 TAB PO Q6HP PRN Ibuprofen Micronized (Ibuprofen), 800 MG PO Q8HP PRN Discontinued Medications Amoxicillin & Pot Clavulanate (Amoxicillin/Potassium Cla), 1 TAB PO BID Ibuprofen Micronized (Ibuprofen), 600 MG PO TIDP PRN Ibuprofen Micronized (Ibuprofen), 800 MG PO Q8HP PRN Sulfamethoxazole W/Trimethopri (Bactrim Ds Tablet), 1 TAB PO BID Tramadol Hcl (Tramadol Hcl), 50 MG PO QID PRN Discharge Statement: "Patient was advised to return to the ER or call 911 if any headaches, dizziness, shortness of breath, chest pain, abdominal pain, bleeding, fevers, or worsening of medical condition. Patient was counseled about treatment plan, medications, possible side effects, patientverbalized understanding. All questions were answered to the best of my ability. This discharge took greater then 30 minutes in planning, reviewing documentation, counseling the patient, and discussing with other team members." ASSESSMENT ASSESSMENT Assessment Cellulitis right lower extremity CUATE LOPEZ NP Aug 17, 2025 09:54
== END 2025-08-17 13:20 | disposition home or self-care (01) | DRG 383 ==
LOC: ER 19:08 → OVERFLOW 20:53 → CENTRAL 08-13 18:01
PROVIDERS: ADMIT Nurse Practitioner; ATTEND Nurse Practitioner
DX: L03.115 Cellulitis of right lower limb (principal); F17.210 Nicotine dependence, cigarettes, uncomplicated; I10 Essential (primary) hypertension; F19.10 Other psychoactive substance abuse, uncomplicated; Z90.49 Acquired absence of other specified parts of digestive tract; R65.10 Systemic inflammatory response syndrome (SIRS) of non-infectious origin without acute organ dysfunction
CPT/HCPCS: 36415; 73610; 80048; 80053; 80202; 80307; 82565; 85025; 93971; 96365; G0378; J2543; J3490

== ENCOUNTER 2025-09-27 22:56 | Emergency (ER) | payer OTHER ==
[~2025-09-27] VITALS: Ht 172.7 cm; Wt 95.7 kg
[2025-09-27] MEDS: KETAMINE 50mg/ML 10ml Vial (500mg/10ml) IV ONE (01:36)
[~2025-09-27 22:56] MED LIST changes: -AMOX875T4 PO; +CEFD300C2 PO; +HYDR-4798 PO; -IBUP1TAB5 PO; -TRAM50TA2 PO
--- NOTE | 2025-09-27 23:39 | ED.PDOC ---
History of Present Illness HPI Comments 30-year-old male presents with chief complaint of right shoulder deformity and pain. Patient reports on onset of symptoms after throwing the football, this evening. Pertinent history of right shoulder dislocations. He is pending surgical intervention for shoulder, currently. Denies any further acute events. Upon arrival to ED triage, patient had a blood pressure 162/105. He has a history of hypertension but does not take any medications for it, currently. Chief Complaint: Upper Extremity Time Seen by MD: 23:40 Primary Care Provider: Dr. Levy Reviewed Notes: Nurses Notes, Medications, Allergies Allergies: Coded Allergies: NO KNOWN ALLERGIES (Unverified , 02/08/23) Home Meds Active Scripts Hydrocodone-Acetaminophen (Hydrocodone Bitartrate/AC 10-325 mg) 1 Tab Tab, 1 TAB PO Q6HP PRN for 5 Days, #20 TAB Prov:CUATE LOPEZ [employer] 25 Sulfamethoxazole W/Trimethopri (Bactrim Ds Tablet) 1 Tab Tb, 1 TAB PO BID for 10 Days, #20 TAB Prov:CUATE LOPEZ [employer]PENTER 25 Cefdinir (Cefdinir) 300 Mg Cap, 1 CAP PO BID for 10 Days, #20 CAP Prov:CUATE LOPEZ [employer] CARPENTER 10/25 Ibuprofen Micronized (Ibuprofen) 800 Mg Tab, 800 MG PO Q8HP PRN, #20 TAB Prov:JENNIFER PEÑA PAC 02/08/23 Information Source: Patient Mode of Arrival: Ambulatory Severity: Moderate Timing: Hours Duration: Since onset Prehospital treatment: None Past Medical History PAST MEDICAL HISTORY: Gallstones, HTN Surgical History: Appendectomy Family History Family History: Unknown Social History Smoker: Cigarettes, Less Than 1 Pack/Day Alcohol: Denies ETOH Use Drugs: Marijuana, Methamphetamine Lives In: Home All Other Systems: Reviewed and Negative (Comprehensive review of systems are negative unless otherwise stated in HPI) Physical Exam General Appearance: No Apparent Distress, Obese HEENT: Normal ENT Inspection, Pharynx Normal, TMs Normal Neck: Full Range of Motion, Non-Tender, Normal, Normal Inspection Respiratory: Chest Non-Tender, Lungs Clear, No Accessory Muscle Use, No Re spiratory Distress, Normal Breath Sounds Cardiovascular: No Edema, No JVD, No Murmur, No Gallop, Normal Peripheral Pulses, Regular Rate/Rhythm Breast Exam: Deferred Gastrointestinal: No Organomegaly, Non Tender, No Pulsatile Mass, Normal Bowel Sounds, Soft Genitalia: Deferred Pelvic: Deferred Rectal: Deferred Extremities: Decreased range of motion (Right shoulder), No calf tenderness, Normal capillary refill, No pedal edema, Tender (Right shoulder), Other (Right shoulder deformity) Musculoskeletal : Apperance: Normal Neurologic: Alert, safety and security officer II-XII nml as Tested, No Motor Deficits, Normal Affect, Normal Mood, No Sensory Deficits Cerebellar Function: Normal Reflexes: Normal Skin: Dry, Normal Color, Warm Lymphatic: No Adenopathy Was a procedure done? Was a procedure done?: Yes Sedation Sedation?: Yes Informed consent obtained: Yes Sedation start time: 01:33 Sedation end time: 01:43 Sedation total time: 10 minutes Reduction Indication: Dislocation (Right shoulder) Sedation: Consents obtained, Sedation as ordered (60 mg of propofol IV and 100 mg of ketamine IV), Attempted Reduction Intra-articular anesthetic bhaskar: Yes Post-reduction x-ray show: Reduction, Good Alignment Informed consent obtained: Yes Risks/benefits/alt described: Yes Notes Patient tolerated procedure. Differential Dx Considerations may include: Dislocation, sprain, strain, fractures, among others X-Ray, Labs, Meds, VS Vital Signs Date Time Temp Pulse Resp B/P (MAP) Pulse Ox O2 Delivery O2 Flow Rate FiO2 09/28/25 02:18 73 12 155/94 (114) 99 09/28/25 02:00 76 13 140/87 (104) 96 09/28/25 01:45 79 8 142/90 (107) 98 09/28/25 01:40 80 10 152/103 (119) 98 09/28/25 01:35 71 16 100 3.0 77 15 100 89 100 09/28/25 01:35 85 11 160/114 (129) 100 09/28/25 01:30 98.1 66 12 142/103 (116) 99 98.1 09/28/25 00:55 Room Air* 0 21 09/27/25 22:57 97.3 77 20 162/105 100 97.3 Current Medications Medications (Trade) Dose Ordered Sig/Angelo Route Start Time Stop Time Status Last Admin Ketamine HCl (Ketalar) 100 mg ONCE ONCE IV 09/27/25 23:45 09/27/25 23:47 DC 09/27/25 01:36 Propofol (Diprivan) 60 mg ONCE ONCE IV 09/27/25 23:45 09/27/25 23:47 DC 09/28/25 01:36 [place] [address] Ph: [phone] DIAGNOSTIC IMAGING Diagnostic Imaging Report : [id number] Signed PATIENT: WENDY DELGADO JR ACCT: [id number] UNIT: [id number] : 1995 LOC: ER ROOM / BED: / AGE / SEX: 30 / M ADM STATUS: REG ER SERVICE [id number] ORDERING PHYSICIAN: DANNIE MORIN MD PROCEDURE(s): RSHD2 - R SHOULDER 2+ VIEW XRAY REASON: pain ORDER NUMBER(s): [id number], ACCESSION NUMBER(s): [id number] CLINICAL INDICATION: pain TECHNIQUE: XY R SHOULDER 2+ VIEW XRAY Comparison: XY R SHOULDER 1V XRAY on DOS: 02/22/25, XY R SHOULDER 2+ VIEW XRAY on DOS: 02/22/25, XY R SHOULDER 1V XRAY on DOS: 12/24/24, XY R SHOULDER 2+ VIEW XRAY on DOS: 12/23/24, XY R SHOULDER 1V XRAY on DOS: 11/26/24 FINDINGS/IMPRESSION: : Anterior and inferior subluxation of the humeral head with respect to the glenoid process of the scapula, consistent with anterior shoulder dislocation. No definite evidence of fracture. Soft tissues are unremarkable. ATED BY: DAVID WILDER MD DICTATED DATE/TIME: 09/28/2510 SIGNED BY: DAVID WILDER MD SIGNED DATE/TIME: 09/28/2510 CC: Time of 1ST Reevaluation: 00:10 Reevaluation 1ST: Unchanged Patient Education/Counseling: Diagnosis, Treatment, Need For Follow Up Family Education/Counseling: No Family Present SEPSIS Sepsis Screen Date sepsis recognized/suspect: Sep 27, 2025 Time Sepsis recognized/suspect: 2300 Recent Procedure: No On Antibiotic Therapy: No Respiratory Rate >20: No Heart Rate >90: No Temp<36 C (96.8 F) or >38.3 C: No SBP <90 or MAP <65 mmHG: No New Acute Mental Status Change: No Is the patient on CPAP, BIPAP,: No Physician Orders R Shoulder 2+ View Xray (09/27/25 23:37) Sedation (09/27/25 ) Heplock Iv (09/27/25 ) Pulse Oximetry (09/28/25 ) Trophy Assembler (09/28/25 ) Apply Sling (09/28/25 01:47) R Shoulder 1v Xray (09/28/25 01:38) Vital Signs Date Time Temp Pulse Resp B/P (MAP) Pulse Ox O2 Delivery O2 Flow Rate FiO2 09/28/25 02:18 73 12 155/94 (114) 99 09/28/25 02:00 76 13 140/87 (104) 96 09/28/25 01:45 79 8 142/90 (107) 98 09/28/25 01:40 80 10 152/103 (119) 98 09/28/25 01:35 71 16 100 3.0 77 15 100 89 100 09/28/25 01:35 85 11 160/114 (129) 100 09/28/25 01:30 98.1 66 12 142/103 (116) 99 98.1 09/28/25 00:55 Room Air* 0 21 09/27/25 22:57 97.3 77 20 162/105 100 97.3 Medications Medications Dose Ordered Sig/Angelo Route Start Time Stop Time Status Last Admin Dose Admin Ketamine HCl 100 mg ONCE ONCE IV 09/27/25 23:45 09/27/25 23:47 DC 09/27/25 01:36 Propofol 60 mg ONCE ONCE IV 09/27/25 23:45 09/27/25 23:47 DC 09/28/25 01:36 Departure 1 Departure Time of Disposition: 02:00 Impression: Primary Impression: Dislocation of right shoulder joint Additional Impression: Recurrent dislocation, right shoulder Disposition: 01 HOME / SELF CARE / HOMELESS Condition: Stable Discharged With: Self Critical Care Note Critical Care Time?: No Stability Stability form required: No Heart Score Heart Score: Heart Score Response (Comments) Value History N/A 0 EKG N/A 0 Age N/A 0 Risk Factors N/A 0 Troponin N/A 0 Total 0 I personally scribed for DANNIE MORIN MD ([email or web address]) on 09/27/25 at 23:39. Electronically submitted by Nestor Abebe ([email or web address]). I personally scribed for DANNIE MORIN MD ([email or web address]) on 09/27/25 at 23:47. Electronically submitted by Nestor Abebe ([email or web address]). I personally scribed for DANNIE MORIN MD ([email or web address]) on 09/28/25 at 01:46. Electronically submitted by Nestor Abebe ([email or web address]). DANNIE MORIN MD Sep 27, 2025 23:39
--- NOTE | 2025-09-28 00:13 | DVH ---
CLINICAL INDICATION: pain TECHNIQUE: XY R SHOULDER 2+ VIEW XRAY Comparison: XY R SHOULDER 1V XRAY on DOS: 02/22/25, XY R SHOULDER 2+ VIEW XRAY on DOS: 02/22/25, XY R SHOULDER 1V XRAY on DOS: 12/24/24, XY R SHOULDER 2+ VIEW XRAY on DOS: 12/23/24, XY R SHOULDER 1V XRAY on DOS: 11/26/24 FINDINGS/IMPRESSION: : Anterior and inferior subluxation of the humeral head with respect to the glenoid process of the scapula, consistent with anterior shoulder dislocation. No definite evidence of fracture. Soft tissues are unremarkable.
[2025-09-28 01:30] VITALS: TEMP 98.1
[2025-09-28] MEDS: PROPOFOL 10 MG/ML 20 ML IV ONE (01:36)
--- NOTE | 2025-09-28 02:02 | DVH ---
CLINICAL INDICATION: RIGHT SHOULDER DISLOCATION TECHNIQUE: XY R SHOULDER 1V XRAY Comparison: XY R SHOULDER 2+ VIEW XRAY on DOS: 09/27/25, XY R SHOULDER 1V XRAY on DOS: 02/22/25, XY R SHOULDER 2+ VIEW XRAY on DOS: 02/22/25, XY R SHOULDER 1V XRAY on DOS: 12/24/24, XY R SHOULDER 2+ VIEW XRAY on DOS: 12/23/24 FINDINGS/IMPRESSION: : Satisfactorily improved alignment status post interval reduction of anterior shoulder dislocation. No evidence of fracture. Soft tissues are unremarkable.
[2025-09-28 02:18] VITALS: BP 155/94; PULSE 73; RESP 12; O2SAT 99
== END 2025-09-28 02:25 | disposition home or self-care (01) ==
LOC: ER 22:56
DX: S43.001A Unspecified subluxation of right shoulder joint, initial encounter (principal); M24.411 Recurrent dislocation, right shoulder; I10 Essential (primary) hypertension; F17.210 Nicotine dependence, cigarettes, uncomplicated; F15.90 Other stimulant use, unspecified, uncomplicated; Z90.49 Acquired absence of other specified parts of digestive tract; X58.XXXA Exposure to other specified factors, initial encounter; Y93.89 Activity, other specified; Y92.89 Other specified places as the place of occurrence of the external cause; Y99.8 Other external cause status
CPT/HCPCS: 23650; 73020; 73030; 99152; 99285; J2704

== ENCOUNTER 2025-10-26 09:56 | Emergency (ER) | payer OTHER ==
[~2025-10-26] VITALS: Ht 172.7 cm; Wt 96.1 kg
--- NOTE | 2025-10-26 10:29 | ED.PDOC ---
Musculoskeletal HPI Comments This is a 30 year old male presenting to the ED with chief complaint of right shoulder dislocation. Patient reports that he woke up this morning with his right shoulder dislocated, needing it reduced. Patient relays that he has history of frequent dislocations of the same shoulder, still pending surgery for repair. Patient denies any numbness, weakness, tingling, fall, or injury. Chief Complaint: Upper Extremity Time Seen by MD: 10:27 Primary Care Provider: Dr. Levy Reviewed Notes: Nurses Notes, Medications, Allergies Allergies: Coded Allergies: NO KNOWN ALLERGIES (Unverified , 02/08/23) Home Meds Active Scripts Hydrocodone-Acetaminophen (Hydrocodone Bitartrate/AC 10-325 mg) 1 Tab Tab, 1 TAB PO Q6HP PRN for 5 Days, #20 TAB Prov:CUATE LOPEZ CERTIFIED NEURODIAGNOSTIC TECHNOLOGIST 08/17/25 Sulfamethoxazole W/Trimethopri (Bactrim Ds Tablet) 1 Tab Tb, 1 TAB PO BID for 10 Days, #20 TAB Prov:CUATE LOPEZ CERTIFIED NEURODIAGNOSTIC TECHNOLOGIST 25 Cefdinir (Cefdinir) 300 Mg Cap, 1 CAP PO BID for 10 Days, #20 CAP Prov:JOHNCUATE M CERTIFIED NEURODIAGNOSTIC TECHNOLOGIST 25 Ibuprofen Micronized (Ibuprofen) 800 Mg Tab, 800 MG PO Q8HP PRN, #20 TAB Prov:JENNIFER PEÑA PAC 02/08/23 Information Source: Patient Mode of Arrival: Ambulatory Location: Right Extremity Location: Shoulder Timing: Hours Prehospital treatment: None Severity: Moderate Able to Move Extremity: No Bear Weight: Fully Pain: Moderate Mechanism: Spontaneous Circumstances: Spontaneous Onset of Symptoms: Spontaneous Symptoms: Pain DVT Risk Factors: NONE Last Tetanus: UTD History of: Shoulder Dislocation Associated signs and symptoms: Shoulder pain Past Medical History PAST MEDICAL HISTORY: Gallstones, HTN Past Medical History (Other): Chronic right shoulder dislocation Surgical History: Appendectomy Family History Family History: Reviewed,noncontributory to illness, Unknown Social History Smoker: Cigarettes, Less Than 1 Pack/Day Alcohol: Denies ETOH Use Drugs: Marijuana, Methamphetamine Lives In: Home Constitutional: denies: chills, diaphoresis, fatigue, fever, malaise, sweats, weakness, others EENTM: denies: blurred vision, double vision, ear bleeding, ear discharge, ear drainage, ear pain, ear ringing, eye pain, eye redness, hearing loss, mouth pain, mouth swelling, nasal discharge, nose bleeding, nose congestion, nose pain, photophobia, tearing, throat pain, throat swelling, voice changes, others Respiratory: denies: cough, hemoptysis, orthopnea, SOB at rest, shortness of breath, SOB with excertion, stridor, wheezing, others Cardiovascular: denies: chest pain, dizzy spells, diaphoresis, Dyspnea on exertion, edema, irregular heart beat, left arm pain, lightheadedness, palpitations, PND, syncope, others Gastrointestinal: denies: abdomen distended, abdominal pain, blood streaked bowels, constipated, diarrhea, dysphagia, difficulty swallowing, hematemesis, melena, nausea, poor appetite, poor fluid intake, rectal bleeding, rectal pain, vomiting, others Genitourinary: denies: burning, dysuria, flank pain, frequency, hematuria, incontinence, penile discharge, penile sore, pain, testicle pain, testicle swelling, urgency, others Neurological: denies: dizziness, fainting, headache, left sided numbness, left sided weakness, numbness, paresthesia, pre-existing deficit, right sided numbness, right sided weakness, seizure, speech problems, tingling, tremors, weakness, others Musculoskeletal: reports: others (right shoulder pain); denies: back pain, gout, joint pain, joint swelling, muscle pain, muscle stiffness, neck pain Integumetry: denies: bruises, change in color, change in hair/nails, dryness, laceration, lesions, lumps, rash, wounds, others Allergic/Immunocompromised: denies: Difficulty Healing, Frequent Infections, Hives, Itching, others Hematologic/Lymphatic: denies: anemia, blood clots, easy bleeding, easy b ruising, swollen glands, others Endocrine: denies: excessive hunger, excessive sweating, excessive thirst, excessive urination, flushing, intolerance to cold, intolerance to heat, unexplained weight gain, unexplained weight loss, others Psychiatric: denies: anxiety, bipolar disorder, depression, hopeless, panic disorder, schizophrenia, sleepless, suicidal, others All Other Systems: Reviewed and Negative Physical Exam General Appearance: No Apparent Distress, Normal HEENT: Normal ENT Inspection, Pharynx Normal, TMs Normal Neck: Full Range of Motion, Non-Tender, Normal, Normal Inspection Respiratory: Chest Non-Tender, Lungs Clear, No Accessory Muscle Use, No Respiratory Distress, Normal Breath Sounds Cardiovascular: No Edema, No JVD, No Murmur, No Gallop, Normal Peripheral Pulses, Regular Rate/Rhythm Breast Exam: Deferred Gastrointestinal: No Organomegaly, Non Tender, No Pulsatile Mass, Normal Bowel Sounds, Soft Genitalia: Deferred Pelvic: Deferred Rectal: Deferred Extremities: No calf tenderness, Normal capillary refill, Normal inspection, Normal range of motion, No pedal edema Musculoskeletal : Location: Right Extremity Location: Shoulder Apperance: Other (Flattening of the right deltoid. Unable to fully range shoulder) Neurologic: Alert, lecturer in marketing II-XII nml as Tested, No Motor Deficits, Normal Affect, Normal Mood, No Sensory Deficits Cerebellar Function: Normal Reflexes: Normal Skin: Dry, Normal Color, Warm Lymphatic: No Adenopathy Was a procedure done? Was a procedure done?: Yes Sedation Sedation?: Yes Informed consent obtained: Yes Sedation start time: 15:19 Sedation end time: 15:22 Sedation total time: 3 minutes Sedation provider statement: Provided 50mg of Ketamine. Patient on 3L NC. Reduction Indication: Dislocation, Subluxation Sedation: Consents obtained, Sedation as ordered (50mg of Ketamine) Post-reduction x-ray show: Reduction, Acceptable Alignment Informed consent obtained: Yes Risks/benefits/alt described: Yes Differential Diagnosis EXT Differential Diagnosis: Dislocation X-Ray, Labs, Meds, VS Vital Signs Date Time Temp Pulse Resp B/P (MAP) Pulse Ox O2 Delivery O2 Flow Rate FiO2 10/26/25 15:46 97.1 65 18 154/102 (119) 99 97.1 10/26/25 15:39 81 20 169/112 (131) 98 10/26/25 15:25 104 16 193/114 (140) 100 10/26/25 15:20 104 18 191/134 (153) 100 10/26/25 15:18 98 15 100 2.0 28 106 24 100 93 94 10/26/25 15:15 80 20 135/85 (102) 100 10/26/25 14:13 68 18 134/88 (103) 98 10/26/25 13:05 80 10/26/25 12:10 97.7 75 18 146/90 (108) 98 97.7 10/26/25 09:57 98.3 80 15 170/114 100 98.3 Current Medications Medications (Trade) Dose Ordered Sig/Angelo Route Start Time Stop Time Status Last Admin Ketamine HCl (Ketalar) 50 mg ONCE ONCE IV 10/26/25 15:45 10/26/25 15:46 DC 10/26/25 15:[address] [address] Ph: [phone] DIAGNOSTIC IMAGING Diagnostic Imaging Report : [id number] Signed PATIENT: WENDY DELGADO JRACCT: [id number] UNIT: [id number] : 1995 LOC: ER ROOM / BED: / AGE / SEX: 30 / M ADM STATUS: REG ER SERVICE 1019 ORDERING PHYSICIAN: ROSARIO SNYDER MD PROCEDURE(s): RSHD2 - R SHOULDER 2+ VIEW XRAY REASON: eval for shoulder dislocation ORDER NUMBER(s): [id number], ACCESSION NUMBER(s): [id number] CLINICAL HISTORY: eval for shoulder dislocation TECHNIQUE: 3 views of the right shoulder were obtained. COMPARISON: Radiographs of the right shoulder performed on 09/28/2025. FINDINGS: There is anterior and inferior displacement of the humerus relative to the glenoid consistent with anterior dislocation. No displaced fracture. IMPRESSION: 1. Anterior glenohumeral joint dislocation. 2. No displaced fracture. ATED BY: MARCIA CHAVES MD DICTATED DATE/TIME: 10/26/25 110 SIGNED BY: MARCIA CHAVES MD SIGNED DATE/TIME: 10/26/25 110 CC: Images Reviewed?: Images reviewed and evaluated by me Time of 1ST Reevaluation: 11:26 Reevaluation 1ST: Unchanged Patient Education/Counseling: Diagnosis, Treatment Family Education/Counseling: No Family Present Departure 1 Departure Time of Disposition: 11:20 (30-year-old male with history of recurrent right shoulder dislocations now presenting for with right shoulder pain, consistent with recurrent dislocation. Was given IV Toradol for analgesia. Initial x-ray performed upon arrival shows the patient has an anterior shoulder dislocation. Conscious sedation was performed with IV ketamine. Patient's shoulder was reduced, feeling improved and is able to range his arm after the reduction. However, postreduction does still show that the patient has a low-lying humeral head, suspect likely joint effusion. Patient was placed in a sling. Advised to follow up with an orthopedist regarding his recurrent shoulder dislocations and shoulder effusion. Patient is stable for discharge further outpatient managem ent.) Impression: Primary Impression: Dislocation of right shoulder joint Additional Impressions: Recurrent dislocation, right shoulder Effusion of shoulder joint, right Disposition: 01 HOME / SELF CARE / HOMELESS Condition: Stable Additional Instructions: You were evaluated today for recurrent right shoulder dislocation. An x-ray performed after shoulder was reduced shows that you still have a low-lying humeral head which is likely related to his shoulder effusion from your recurrent dislocations. Because you have had numerous shoulder dislocations previously you should follow up with his an outpatient orthopedist as you may be a candidate for surgery to prevent further dislocations. Discharged With: Self Critical Care Note Critical Care Time?: No Stability Stability form required: No Heart Score Heart Score: Heart Score Response (Comments) Value History N/A 0 EKG N/A 0 Age N/A 0 Risk Factors N/A 0 Troponin N/A 0 Total 0 I personally scribed for ROSARIO SNYDER MD ([employer]) on 10/26/25 at 10:29. Electronically submitted by Ronald Sears ([employer]). I personally scribed for ROSARIO SNYDER MD (Health Informatics) on 10/26/25 at 11:23. Electronically submitted by Ronald Sears ([employer]). I personally scribed for ROSARIO SNYDER MD (Health Informatics) on 10/26/25 at 15:24. Electronically submitted by Ronald Sears ([employer]). I personally scribed for ROSARIO SNYDER MD (Health Informatics) on 10/26/25 at 15:31. Electronically submitted by Ronald Sears ([employer]). ROSARIO SNYDER MD Oct 26, 2025 10:29
--- NOTE | 2025-10-26 11:12 | DVH ---
CLINICAL HISTORY: eval for shoulder dislocation TECHNIQUE: 3 views of the right shoulder were obtained. COMPARISON: Radiographs of the right shoulder performed on 09/28/2025. FINDINGS: There is anterior and inferior displacement of the humerus relative to the glenoid consistent with anterior dislocation. No displaced fracture. IMPRESSION: 1. Anterior glenohumeral joint dislocation. 2. No displaced fracture.
[2025-10-26 13:05] VITALS: PULSE 80
[2025-10-26] MEDS: KETOROLAC TROMETH 30 MG/ML 1ML VIAL IV ONE (14:45)
[2025-10-26] MEDS: KETAMINE 50mg/ML 10ml Vial (500mg/10ml) IV ONE ×2 (14:45→15:19)
--- NOTE | 2025-10-26 16:02 | DVH ---
CLINICAL INDICATION: POST REDUCTION TECHNIQUE: XY R SHOULDER 1V XRAY COMPARISON: XY R SHOULDER 2+ VIEW XRAY on DOS: 10/26/25, XY R SHOULDER 1V XRAY on DOS: 09/28/25, XY R SHOULDER 2+ VIEW XRAY on DOS: 09/27/25, XY R SHOULDER 1V XRAY on DOS: 02/22/25, XY R SHOULDER 2+ VIEW XRAY on DOS: 02/22/25 FINDINGS/IMPRESSION: : No acute fracture. Examination is limited secondary to suboptimal views. Grossly, there appears to be satisfactory interval reduction of anterior joint dislocation previously visualized. There is slightly low-lying positioning of the humerus with respect to the glenoid fossa possibly representing underlying joint effusion. Clinical correlation advised.
[2025-10-26 17:22] VITALS: BP 136/80; PULSE 93; RESP 18; TEMP 97.2; O2SAT 100
== END 2025-10-26 17:24 | disposition home or self-care (01) ==
LOC: ER 10:02
DX: S43.001A Unspecified subluxation of right shoulder joint, initial encounter (principal); M25.411 Effusion, right shoulder; M24.411 Recurrent dislocation, right shoulder; F12.90 Cannabis use, unspecified, uncomplicated; F19.90 Other psychoactive substance use, unspecified, uncomplicated; F17.210 Nicotine dependence, cigarettes, uncomplicated; I10 Essential (primary) hypertension; Z79.899 Other long term (current) drug therapy; Z90.49 Acquired absence of other specified parts of digestive tract; X58.XXXA Exposure to other specified factors, initial encounter; Y93.89 Activity, other specified; Y92.89 Other specified places as the place of occurrence of the external cause; Y99.8 Other external cause status
CPT/HCPCS: 23650; 73020; 73030; J1885